=== PATIENT | male | born 1955 | race African-American/Black ===

== ENCOUNTER 2016-09-28 11:59 | Emergency (ER) | payer MEDICAID ==
[~2016-09-28] VITALS: Ht 182.9 cm; Wt 91.0 kg
[2016-09-28 12:21] VITALS: BP 130/79
[2016-09-28] MEDS ORDERED: IBUPROFEN 600MG TABLET PO ONE (13:15)
== END 2016-09-28 14:03 | disposition left against medical advice (07) ==
LOC: ER 11:59
DX: M25.532 Pain in left wrist (principal); F17.200 Nicotine dependence, unspecified, uncomplicated; F19.10 Other psychoactive substance abuse, uncomplicated; W18.30XA Fall on same level, unspecified, initial encounter; Y93.89 Activity, other specified; Y92.89 Other specified places as the place of occurrence of the external cause; Y99.8 Other external cause status
CPT/HCPCS: 73110; 99284

== ENCOUNTER 2016-10-03 12:20 | Emergency (ER) | payer MEDICAID ==
[~2016-10-03] VITALS: Ht 172.7 cm; Wt 63.0 kg
[2016-10-03] MEDS ORDERED: KETOROLAC 60MG/2ML VIAL IM ONE (14:45)
[2016-10-03 15:06] VITALS: BP 115/74
== END 2016-10-03 15:23 | disposition home or self-care (01) ==
LOC: ER 13:47
DX: M25.532 Pain in left wrist (principal); M79.1 Myalgia; F20.9 Schizophrenia, unspecified; F31.9 Bipolar disorder, unspecified; F17.200 Nicotine dependence, unspecified, uncomplicated; W01.0XXA Fall on same level from slipping, tripping and stumbling without subsequent striking against object, initial encounter
CPT/HCPCS: 96372; 99283; J1885

== ENCOUNTER 2016-10-03 23:13 | Emergency (ER) | payer MEDICAID ==
[~2016-10-03] VITALS: Ht 170.2 cm; Wt 63.0 kg
[2016-10-04 02:00] VITALS: BP 125/71
== END 2016-10-04 05:29 | disposition home or self-care (01) ==
LOC: ER 23:22
DX: M79.642 Pain in left hand (principal)
CPT/HCPCS: 99283

== ENCOUNTER 2016-10-10 00:53 | Emergency (ER) | payer MEDICAID ==
[~2016-10-10] VITALS: Ht 182.9 cm; Wt 68.0 kg
[2016-10-10] MEDS ORDERED: LIDOCAINE HCL 1%/EPI 1:200,000 30 ML VIAL MC ONE (04:00)
[2016-10-10] MEDS ORDERED: TETANUS, DIPHTHERIA, PERTUSSIS VAC/PF 0.5ML (>7YR OLD) IM ONE (04:00)
[2016-10-10] MEDS ORDERED: BACITRACIN ZINC OINT UDPKT TOP ONE (04:00)
[2016-10-10 04:15] LABS: BASOPHILS % 2.7 % (0.0-2.0); EOSINOPHILS % 2.2 % (0.0-5.0); HEMATOCRIT. 35.4 % (42.0-52.0); HEMOGLOBIN. 11.8 g/dL (14.0-18.0); LYMPHOCYTES % 47.8 % (20.0-50.0); MEAN CORPUSCULAR HEMOGLOBIN 28.2 pg (28.0-32.0); MEAN CORPUSCULAR VOLUME 84.4 fL (80.0-94.0); MEAN PLATELET VOLUME 8.3 fl (7.4-10.4); MONOCYTES % 7.8 % (2.0-8.0); NEUTROPHILS % 39.5 % (40.0-76.0); PLATELET 75 x1000/uL (130-400); RED BLOOD CELL COUNT 4.19 mill/uL (4.7-6.1); RED CELL DISTRIBUTION WIDTH 16.3 % (11.6-14.6)
[2016-10-10 04:31] LABS: CARBON DIOXIDE 27 mEq/L (21-32); CHLORIDE 111 mEq/L (98-107); ETHANOL BLOOD 296 mg/dL
[2016-10-10 04:47] LABS: CLARITY URINE CLEAR (CLEAR); COLOR URINE YELLOW (YELLOW); GLUCOSE URINE NEGATIVE (NEGATIVE); KETONES URINE NEGATIVE (NEGATIVE); LEUKOCYTE ESTERASE URINE NEGATIVE (NEGATIVE); NITRITE URINE NEGATIVE (NEGATIVE); OCCULT BLOOD URINE NEGATIVE (NEGATIVE); PROTEIN URINE NEGATIVE (NEGATIVE); SPECIFIC GRAVITY URINE 1.012 (1.005-1.030); UROBILINOGEN URINE 0.2 E.U./dL (0.2-1.0)
[2016-10-10 05:01] LABS: *AMPHETAMINES SCREEN URINE NEGATIVE (NEGATIVE); *BARBITURATES SCREEN URINE NEGATIVE (NEGATIVE); *BENZODIAZEPINES SCREEN URINE NEGATIVE (NEGATIVE); *COCAINE SCREEN URINE NEGATIVE (NEGATIVE); CANNABINOID URINE SCREEN NEGATIVE (NEGATIVE); METHADONE URINE SCREEN NEGATIVE (NEGATIVE); OPIATES URINE SCREEN NEGATIVE (NEGATIVE); PHENCYCLIDINE URINE SCREEN PRESUMTIVE POSITIVE (NEGATIVE)
[2016-10-10] MEDS ORDERED: FLUORESCEIN SODIUM 1MG/STRIP OP ONE (07:45)
[2016-10-10] MEDS ORDERED: BALANCED SALT IRRIG SOLN 15ML IO ONE (07:45)
[2016-10-10] MEDS ORDERED: TETRACAINE 0.5% OPHTH DROPS 4ML OP ONE (07:45)
[2016-10-10 10:54] VITALS: BP 104/60
== END 2016-10-10 11:37 | disposition left against medical advice (07) ==
LOC: ER 00:59 → EDBEDREQ 10:31 → CANBEDREQ 11:28 → ER 11:37
DX: S05.41XA Penetrating wound of orbit with or without foreign body, right eye, initial encounter (principal); X58.XXXA Exposure to other specified factors, initial encounter; Y93.89 Activity, other specified; Y92.89 Other specified places as the place of occurrence of the external cause; Y99.8 Other external cause status; S09.90XA Unspecified injury of head, initial encounter
CPT/HCPCS: 36415; 70450; 70486; 72125; 80053; 80305; 81003; 85025; 99285; G0482; X7700; Z7610

== ENCOUNTER 2016-10-15 03:06 | Emergency (ER) | payer MEDICAID ==
[~2016-10-15] VITALS: Ht 180.3 cm; Wt 62.0 kg
[2016-10-15 03:56] VITALS: BP 106/58
== END 2016-10-15 07:30 | disposition left against medical advice (07) ==
LOC: ER 03:06
DX: Z53.21 Procedure and treatment not carried out due to patient leaving prior to being seen by health care provider (principal); I10 Essential (primary) hypertension; F17.210 Nicotine dependence, cigarettes, uncomplicated; F14.10 Cocaine abuse, uncomplicated

== ENCOUNTER 2016-10-24 21:42 | Emergency (ER) | payer MEDICAID ==
[~2016-10-24] VITALS: Ht 177.8 cm; Wt 68.0 kg
[~2016-10-24 21:42] MED LIST: DIATR MEGLU/DIATRIZOATE SOLN 120ML ONE
[2016-10-25] MEDS ORDERED: SODIUM CHLORIDE 0.9% 1,000 ML IV ONE (00:28)
[2016-10-25] MEDS ORDERED: ONDANSETRON HCL 4MG/2ML VIAL IV STA (00:28)
[2016-10-25 00:53] LABS: BASOPHILS % 3.1 % (0.0-2.0); HEMATOCRIT. 38.9 % (42.0-52.0); MEAN CORPUSCULAR HEMOGLOBIN 28.8 pg (28.0-32.0); MEAN CORPUSCULAR VOLUME 86.2 fL (80.0-94.0); MEAN PLATELET VOLUME 8.5 fl (7.4-10.4); MONOCYTES % 11.7 % (2.0-8.0); NEUTROPHILS % 47.2 % (40.0-76.0); PLATELET 130 x1000/uL (130-400); RED BLOOD CELL COUNT 4.52 mill/uL (4.7-6.1); RED CELL DISTRIBUTION WIDTH 16.5 % (11.6-14.6)
[2016-10-25 00:58] LABS: CHLORIDE 105 mEq/L (98-107)
[2016-10-25 01:07] LABS: CARBON DIOXIDE 27 mEq/L (21-32); ETHANOL BLOOD 214 mg/dL
[2016-10-25 04:00] VITALS: BP 118/75
== END 2016-10-25 05:58 | disposition home or self-care (01) ==
LOC: ER 21:52
DX: M79.605 Pain in left leg (principal); K52.9 Noninfective gastroenteritis and colitis, unspecified
CPT/HCPCS: 36415; 74176; 80053; 83690; 85025; 93971; 96374; 99285; G0482; J2405; J7030; Z7610; 96361; Q9963

== ENCOUNTER 2016-11-24 04:43 | Emergency (ER) | payer MEDICAID ==
[~2016-11-24] VITALS: Ht 185.4 cm; Wt 61.0 kg
[2016-11-24] MEDS ORDERED: KETOROLAC 60MG/2ML VIAL IM ONE (06:45)
[2016-11-24] MEDS ORDERED: TRAMADOL 50MG TABLET PO ONE (09:15)
[2016-11-24 10:10] VITALS: BP 134/85
== END 2016-11-24 11:02 | disposition home or self-care (01) ==
LOC: ER 04:43
DX: S29.011A Strain of muscle and tendon of front wall of thorax, initial encounter (principal); G40.909 Epilepsy, unspecified, not intractable, without status epilepticus; Y08.89XA Assault by other specified means, initial encounter; Y93.89 Activity, other specified; Y92.488 Other paved roadways as the place of occurrence of the external cause
CPT/HCPCS: 71010; 96372; 99283; J1885

== ENCOUNTER 2017-01-03 20:57 | Emergency (ER) | payer MEDICAID ==
[~2017-01-03] VITALS: Ht 180.3 cm; Wt 63.0 kg
[2017-01-03] MEDS ORDERED: ONDANSETRON HCL 4MG/2ML VIAL IV STA (23:32)
[2017-01-03] MEDS ORDERED: MORPHINE SULFATE 4 MG/ML CPJ (NOT FOR IM USE) IV STA (23:32)
[2017-01-03] MEDS ORDERED: FLUORESCEIN SODIUM 1MG/STRIP OP ONE (23:45)
[2017-01-03] MEDS ORDERED: TETRACAINE 0.5% OPHTH DROPS 4ML OP ONE (23:45)
[2017-01-04] MEDS ORDERED: MORPHINE SULFATE 10 MG/ML CPJ IV STA (00:09)
[2017-01-04] MEDS ORDERED: MORPHINE SULFATE 10 MG/ML CPJ IV SCH (00:15)
[2017-01-04] MEDS ORDERED: KETOROLAC 15MG/ML VIAL IV ONE (06:30)
[2017-01-04] MEDS ORDERED: ONDANSETRON HCL 4MG/2ML VIAL IV ONE (06:30)
[2017-01-04] MEDS ORDERED: MORPHINE SULFATE 10 MG/ML CPJ IV ONE (06:30)
[2017-01-04] MEDS ORDERED: CIPROFLOXACIN 0.3% OPHTH SOLN 2.5ML BOTHEYE ONE (09:45)
[2017-01-04] MEDS ORDERED: PREDNISOLONE ACETATE 1% OPHTH DROPS 1ML BOTHEYE ONE (09:45)
[2017-01-04 11:12] VITALS: BP 146/73
== END 2017-01-04 11:14 | disposition home or self-care (01) ==
LOC: ER 21:10
DX: S05.92XA Unspecified injury of left eye and orbit, initial encounter (principal); H40.9 Unspecified glaucoma; I10 Essential (primary) hypertension; F17.200 Nicotine dependence, unspecified, uncomplicated; Y09 Assault by unspecified means; Y93.89 Activity, other specified; Y92.89 Other specified places as the place of occurrence of the external cause; Y99.8 Other external cause status
CPT/HCPCS: 70486; 96374; 96375; 96376; 99284; J1885; J2270; J2405; Z7610

== ENCOUNTER 2017-06-06 01:45 | Emergency (ER) | payer MEDICAID ==
[~2017-06-06] VITALS: Ht 182.9 cm; Wt 70.0 kg
[2017-06-06 01:47] VITALS: BP 155/82
== END 2017-06-06 09:00 | disposition left against medical advice (07) ==
LOC: ER 01:45
DX: R07.81 Pleurodynia (principal); Z53.21 Procedure and treatment not carried out due to patient leaving prior to being seen by health care provider

== ENCOUNTER 2017-06-11 17:11 | Emergency (ER) | payer MEDICAID ==
[~2017-06-11] VITALS: Ht 172.7 cm; Wt 76.0 kg
[2017-06-11 17:52] VITALS: BP 146/85
== END 2017-06-11 18:43 | disposition left against medical advice (07) ==
LOC: ER 17:11
DX: R07.81 Pleurodynia (principal); Z53.21 Procedure and treatment not carried out due to patient leaving prior to being seen by health care provider

== ENCOUNTER 2018-01-16 20:58 | Emergency (ER) | payer MEDICAID ==
[~2018-01-16] VITALS: Ht 188 cm; Wt 80.0 kg
[2018-01-17 00:05] LABS: BASOPHILS % 1.2 % (0.0-2.0); EOSINOPHILS % 0.8 % (0.0-5.0); HEMATOCRIT. 37.9 % (42.0-52.0); HEMOGLOBIN. 12.6 g/dL (14.0-18.0); LYMPHOCYTES % 43.4 % (20.0-50.0); MEAN CORPUSCULAR HEMOGLOBIN 29.2 pg (28.0-32.0); MEAN CORPUSCULAR VOLUME 87.9 fL (80.0-94.0); MONOCYTES % 9.4 % (2.0-8.0); NEUTROPHILS % 45.2 % (40.0-76.0); PLATELET 82 x1000/uL (130-400); RED BLOOD CELL COUNT 4.31 mill/uL (4.7-6.1); RED CELL DISTRIBUTION WIDTH 16.5 % (11.6-14.6)
[2018-01-17 00:07] LABS: CHLORIDE 106 mEq/L (98-107)
[2018-01-17 00:09] LABS: INR 1.1
[2018-01-17 00:27] LABS: ETHANOL BLOOD 420 mg/dL
[2018-01-17 03:43] VITALS: BP 111/98
== END 2018-01-17 03:20 | disposition home or self-care (01) ==
LOC: ER 20:58
DX: F10.129 Alcohol abuse with intoxication, unspecified (principal); Y90.8 Blood alcohol level of 240 mg/100 ml or more; S00.83XA Contusion of other part of head, initial encounter; X58.XXXA Exposure to other specified factors, initial encounter; Y93.89 Activity, other specified; Y92.89 Other specified places as the place of occurrence of the external cause; F17.210 Nicotine dependence, cigarettes, uncomplicated
CPT/HCPCS: 36415; 70450; 80053; 85025; 85610; 99284; G0482

== ENCOUNTER 2018-02-03 20:19 | Emergency (ER) | payer MEDICAID ==
[~2018-02-03] VITALS: Ht 182.9 cm; Wt 86.0 kg
[2018-02-03] MEDS ORDERED: KETOROLAC 60MG/2ML VIAL IM ONE (20:45)
[2018-02-03] MEDS ORDERED: HALOPERIDOL 5MG TABLET PO ONE (20:45)
[2018-02-03 22:26] LABS: *AMPHETAMINES SCREEN URINE NEGATIVE (NEGATIVE); *BARBITURATES SCREEN URINE NEGATIVE (NEGATIVE); *BENZODIAZEPINES SCREEN URINE NEGATIVE (NEGATIVE); *COCAINE SCREEN URINE PRESUMTIVE POSITIVE (NEGATIVE); CANNABINOID URINE SCREEN NEGATIVE (NEGATIVE); OPIATES URINE SCREEN NEGATIVE (NEGATIVE); PHENCYCLIDINE URINE SCREEN NEGATIVE (NEGATIVE)
[2018-02-03 22:27] LABS: METHADONE URINE SCREEN NEGATIVE (NEGATIVE)
[2018-02-03 22:44] LABS: BASOPHILS % 3.1 % (0.0-2.0); CHLORIDE 113 mEq/L (98-107); EOSINOPHILS % 3.4 % (0.0-5.0); HEMATOCRIT. 40.9 % (42.0-52.0); HEMOGLOBIN. 13.6 g/dL (14.0-18.0); LYMPHOCYTES % 32.8 % (20.0-50.0); MEAN CORPUSCULAR HEMOGLOBIN 29.3 pg (28.0-32.0); MEAN CORPUSCULAR VOLUME 88.1 fL (80.0-94.0); MEAN PLATELET VOLUME 8.7 fl (7.4-10.4); MONOCYTES % 9.8 % (2.0-8.0); NEUTROPHILS % 50.9 % (40.0-76.0); PLATELET 223 x1000/uL (130-400); RED BLOOD CELL COUNT 4.65 mill/uL (4.7-6.1); RED CELL DISTRIBUTION WIDTH 16.6 % (11.6-14.6)
[2018-02-03 22:56] LABS: CREATINE KINASE 132 IU/L (39-308)
[2018-02-03 23:12] LABS: ETHANOL BLOOD 309 mg/dL
[2018-02-04 10:57] VITALS: BP 137/84
== END 2018-02-04 11:03 | disposition home or self-care (01) ==
LOC: ER 20:19
DX: R45.851 Suicidal ideations (principal); F33.3 Major depressive disorder, recurrent, severe with psychotic symptoms; F10.10 Alcohol abuse, uncomplicated; Y90.8 Blood alcohol level of 240 mg/100 ml or more; F14.10 Cocaine abuse, uncomplicated; G89.29 Other chronic pain
CPT/HCPCS: 36415; 80053; 80305; 80307; 80329; 82550; 85025; 96372; 99284; G0482; J1630; J1885

== ENCOUNTER 2018-05-18 19:27 | Emergency (ER) | payer MEDICAID ==
[~2018-05-18] VITALS: Ht 172.7 cm; Wt 64.0 kg
[2018-05-19 00:16] LABS: BASOPHILS % 0.7 % (0.0-2.0); EOSINOPHILS % 0.4 % (0.0-5.0); HEMATOCRIT. 45.1 % (42.0-52.0); HEMOGLOBIN. 15.2 g/dL (14.0-18.0); LYMPHOCYTES % 21.6 % (20.0-50.0); MEAN CORPUSCULAR HEMOGLOBIN 27.9 pg (28.0-32.0); MEAN CORPUSCULAR VOLUME 82.8 fL (80.0-94.0); MEAN PLATELET VOLUME 8.1 fl (7.4-10.4); MONOCYTES % 8.2 % (2.0-8.0); NEUTROPHILS % 69.1 % (40.0-76.0); PLATELET 143 x1000/uL (130-400); RED BLOOD CELL COUNT 5.45 mill/uL (4.7-6.1); RED CELL DISTRIBUTION WIDTH 14.9 % (11.6-14.6)
[2018-05-19 00:21] LABS: CHLORIDE 105 mEq/L (98-107)
[2018-05-19 00:25] LABS: ETHANOL BLOOD 11 mg/dL
[2018-05-19] MEDS ORDERED: DEXT 5%/0.45% NACL KCL 20MEQ/L 1,000 ML IV ONE (01:30)
[2018-05-19] MEDS ORDERED: TETANUS, DIPHTHERIA, PERTUSSIS VAC/PF 0.5ML (>7YR OLD) IM ONE (01:30)
[2018-05-19] MEDS ORDERED: IBUPROFEN 600MG TABLET PO ONE (01:30)
[2018-05-19] MEDS ORDERED: BACITRACIN 15GM TUBE TOP NR (01:30)
[2018-05-19 10:15] LABS: CLARITY URINE CLEAR (CLEAR); COLOR URINE YELLOW (YELLOW); KETONES URINE NEGATIVE (NEGATIVE); LEUKOCYTE ESTERASE URINE 2+ (NEGATIVE); NITRITE URINE POSITIVE (NEGATIVE); OCCULT BLOOD URINE TRACE (NEGATIVE); PH URINE 5.5 (4.5-8.0); PROTEIN URINE NEGATIVE (NEGATIVE); SPECIFIC GRAVITY URINE 1.009 (1.005-1.030); UROBILINOGEN URINE 0.2 E.U./dL (0.2-1.0)
[2018-05-19 11:40] VITALS: BP 155/100
== END 2018-05-19 12:05 | disposition home or self-care (01) ==
LOC: ER 19:27
DX: S01.111A Laceration without foreign body of right eyelid and periocular area, initial encounter (principal); F10.20 Alcohol dependence, uncomplicated; E11.9 Type 2 diabetes mellitus without complications; I10 Essential (primary) hypertension; N28.9 Disorder of kidney and ureter, unspecified; H40.9 Unspecified glaucoma; F15.10 Other stimulant abuse, uncomplicated; Z86.73 Personal history of transient ischemic attack (TIA), and cerebral infarction without residual deficits; Z98.890 Other specified postprocedural states; X58.XXXA Exposure to other specified factors, initial encounter; Y93.89 Activity, other specified; Y92.89 Other specified places as the place of occurrence of the external cause; Y99.8 Other external cause status; Y90.0 Blood alcohol level of less than 20 mg/100 ml
CPT/HCPCS: 36415; 70450; 80053; 80320; 81003; 82962; 83880; 84484; 85025; 87077; 87086; 87186; 90471; 90715; 93005; 96360; 96361; 99284; Z7610; G0480

== ENCOUNTER 2020-10-11 16:45 | Emergency (ER) | payer MEDICAID ==
[~2020-10-11] VITALS: Ht 182.9 cm; Wt 72.0 kg
[2020-10-11 16:59] VITALS: BP 138/76
[2020-10-11] MEDS ORDERED: MAGNESIUM/ALUMINUM HYDROXIDE/SIMETHICONE 30ML UDC PO STA (17:29)
[2020-10-11] MEDS ORDERED: VISCOUS LIDOCAINE 2% 15 ML UDC PO STA (17:29)
[2020-10-11] MEDS ORDERED: DICYCLOMINE 10 MG/5 ML ORAL SYR PO STA (17:29)
[2020-10-11 18:05] LABS: BASOPHILS % 1.2 % (0.0-2.0); EOSINOPHILS % 0.3 % (0.0-5.0); HEMATOCRIT. 39.3 % (42.0-52.0); HEMOGLOBIN. 13.4 g/dL (14.0-18.0); LYMPHOCYTES % 23.3 % (20.0-50.0); MEAN CORPUSCULAR HEMOGLOBIN 29.2 pg (28.0-32.0); MEAN CORPUSCULAR VOLUME 85.7 fL (80.0-94.0); MEAN PLATELET VOLUME 8.2 fl (7.4-10.4); MONOCYTES % 5.2 % (2.0-8.0); PLATELET 142 x1000/uL (130-400); RED BLOOD CELL COUNT 4.58 mill/uL (4.7-6.1); RED CELL DISTRIBUTION WIDTH 15.3 % (11.6-14.6)
[2020-10-11 18:12] LABS: CHLORIDE 104 mEq/L (98-107)
[2020-10-11 18:53] LABS: ETHANOL BLOOD 362 mg/dL
== END 2020-10-11 21:54 | disposition left against medical advice (07) ==
LOC: ER 17:26
DX: R10.825 Periumbilic rebound abdominal tenderness (principal); T51.0X1A Toxic effect of ethanol, accidental (unintentional), initial encounter; F15.10 Other stimulant abuse, uncomplicated; E11.9 Type 2 diabetes mellitus without complications; I10 Essential (primary) hypertension; N28.9 Disorder of kidney and ureter, unspecified; Z98.890 Other specified postprocedural states; Z86.73 Personal history of transient ischemic attack (TIA), and cerebral infarction without residual deficits; Y92.89 Other specified places as the place of occurrence of the external cause
CPT/HCPCS: 36415; 80053; 80320; 85025; 99283; G0480

== ENCOUNTER 2021-01-02 21:01 | Emergency (ER) | payer MEDICAID ==
[~2021-01-02] VITALS: Ht 180.3 cm; Wt 68.0 kg
[2021-01-03 01:22] LABS: BASOPHILS % 1.4 % (0.0-2.0); EOSINOPHILS % 0.4 % (0.0-5.0); HEMATOCRIT. 44.2 % (42.0-52.0); HEMOGLOBIN. 14.7 g/dL (14.0-18.0); MEAN CORPUSCULAR HEMOGLOBIN 29.4 pg (28.0-32.0); MEAN CORPUSCULAR VOLUME 87.9 fL (80.0-94.0); MEAN PLATELET VOLUME 9.2 fl (7.4-10.4); NEUTROPHILS % 51.2 % (40.0-76.0); PLATELET 123 x1000/uL (130-400); RED BLOOD CELL COUNT 5.02 mill/uL (4.7-6.1); RED CELL DISTRIBUTION WIDTH 14.7 % (11.6-14.6)
[2021-01-03 01:42] LABS: CHLORIDE 106 mEq/L (98-107)
[2021-01-03 02:32] LABS: CLARITY URINE CLEAR (CLEAR); COLOR URINE YELLOW (YELLOW); KETONES URINE NEGATIVE (NEGATIVE); LEUKOCYTE ESTERASE URINE NEGATIVE (NEGATIVE); NITRITE URINE NEGATIVE (NEGATIVE); OCCULT BLOOD URINE NEGATIVE (NEGATIVE); PROTEIN URINE NEGATIVE (NEGATIVE); SPECIFIC GRAVITY URINE 1.004 (1.005-1.030); UROBILINOGEN URINE 0.2 E.U./dL (0.2-1.0)
[2021-01-03] MEDS ORDERED: KETOROLAC 60MG/2ML VIAL IM SCH (03:02)
[2021-01-03 03:10] VITALS: BP 129/79
[2021-01-03] MEDS ORDERED: IBUP-2028 MT (03:36)
== END 2021-01-03 03:48 | disposition home or self-care (01) ==
LOC: ER 21:01
DX: G89.29 Other chronic pain (principal); R07.89 Other chest pain; I12.9 Hypertensive chronic kidney disease with stage 1 through stage 4 chronic kidney disease, or unspecified chronic kidney disease; E11.22 Type 2 diabetes mellitus with diabetic chronic kidney disease; N18.9 Chronic kidney disease, unspecified; F15.10 Other stimulant abuse, uncomplicated; H40.9 Unspecified glaucoma; F10.21 Alcohol dependence, in remission; Z86.73 Personal history of transient ischemic attack (TIA), and cerebral infarction without residual deficits; Z86.19 Personal history of other infectious and parasitic diseases
CPT/HCPCS: 36415; 71045; 80053; 81003; 83690; 85025; 96372; 99284; J1885

== ENCOUNTER 2021-10-11 22:16 | Emergency (ER) | payer MEDICAID ==
[~2021-10-11] VITALS: Ht 180.3 cm; Wt 68.0 kg
[~2021-10-11 22:16] MED LIST changes: -DIATR MEGLU/DIATRIZOATE SOLN 120ML ONE; +IBUP-2028 MT
[2021-10-11] MEDS ORDERED: MORPHINE SULFATE 4 MG/ML CPJ (NOT FOR IM USE) IV STA (22:53)
[2021-10-11] MEDS ORDERED: ONDANSETRON HCL 4MG/2ML INJ IV STA (22:53)
[2021-10-11 23:32] LABS: CHLORIDE 104 mEq/L (98-107)
[2021-10-11 23:37] LABS: BASOPHILS % 2.1 % (0.0-2.0); EOSINOPHILS % 0.4 % (0.0-5.0); HEMOGLOBIN. 12.6 g/dL (14.0-18.0); MEAN CORPUSCULAR VOLUME 89.6 fL (80.0-94.0); MEAN PLATELET VOLUME 9.2 fl (7.4-10.4); NEUTROPHILS % 44.5 % (40.0-76.0); PLATELET 87 x1000/uL (130-400); RED BLOOD CELL COUNT 4.35 mill/uL (4.7-6.1); RED CELL DISTRIBUTION WIDTH 15.7 % (11.6-14.6)
[2021-10-11 23:53] LABS: ETHANOL BLOOD 356 mg/dL
[2021-10-12 00:10] LABS: CLARITY URINE CLEAR (CLEAR); COLOR URINE YELLOW (YELLOW); KETONES URINE NEGATIVE (NEGATIVE); LEUKOCYTE ESTERASE URINE NEGATIVE (NEGATIVE); NITRITE URINE NEGATIVE (NEGATIVE); OCCULT BLOOD URINE NEGATIVE (NEGATIVE); PROTEIN URINE NEGATIVE (NEGATIVE); SPECIFIC GRAVITY URINE 1.004 (1.005-1.030); UROBILINOGEN URINE 0.2 E.U./dL (0.2-1.0)
[2021-10-12 00:20] LABS: *AMPHETAMINES SCREEN URINE NEGATIVE (NEGATIVE); *BARBITURATES SCREEN URINE NEGATIVE (NEGATIVE); *BENZODIAZEPINES SCREEN URINE NEGATIVE (NEGATIVE); *COCAINE SCREEN URINE NEGATIVE (NEGATIVE); CANNABINOID URINE SCREEN PRESUMTIVE POSITIVE (NEGATIVE); METHADONE URINE SCREEN NEGATIVE (NEGATIVE); OPIATES URINE SCREEN NEGATIVE (NEGATIVE); PHENCYCLIDINE URINE SCREEN NEGATIVE (NEGATIVE)
[2021-10-12 03:00] VITALS: BP 122/79
[2021-10-12] MEDS ORDERED: CEPH500C2 MT (04:28)
[2021-10-12] MEDS ORDERED: IBUP-2029 MT (04:28)
== END 2021-10-12 05:07 | disposition home or self-care (01) ==
LOC: ER 22:16
DX: S09.8XXA Other specified injuries of head, initial encounter (principal); W18.39XA Other fall on same level, initial encounter; Y93.89 Activity, other specified; Y92.89 Other specified places as the place of occurrence of the external cause; Y99.8 Other external cause status; M25.552 Pain in left hip; G89.29 Other chronic pain; F10.229 Alcohol dependence with intoxication, unspecified; Y90.0 Blood alcohol level of less than 20 mg/100 ml; E11.9 Type 2 diabetes mellitus without complications; I10 Essential (primary) hypertension; Z86.73 Personal history of transient ischemic attack (TIA), and cerebral infarction without residual deficits; F15.10 Other stimulant abuse, uncomplicated; Z20.822 Contact with and (suspected) exposure to COVID-19
CPT/HCPCS: 36415; 70450; 71045; 73502; 80053; 80305; 80320; 81003; 84484; 85025; 86850; 86900; 86901; 87426; 93005; 96374; 96375; 99285; C9803; J2270; J2405; G0480

== ENCOUNTER 2022-02-17 15:23 | Emergency (ER) | payer MEDICAID ==
[~2022-02-17] VITALS: Ht 182.9 cm; Wt 72.0 kg
[~2022-02-17 15:23] MED LIST changes: +CEPH500C2 MT; -IBUP-2028 MT; +IBUP-2029 MT
[2022-02-17 16:54] LABS: BASOPHILS % 1.3 % (0.0-2.0); EOSINOPHILS % 0.1 % (0.0-5.0); HEMATOCRIT. 39.2 % (42.0-52.0); HEMOGLOBIN. 12.9 g/dL (14.0-18.0); LYMPHOCYTES % 13.3 % (20.0-50.0); MEAN CORPUSCULAR HEMOGLOBIN 29.4 pg (28.0-32.0); MEAN CORPUSCULAR VOLUME 89.1 fL (80.0-94.0); MEAN PLATELET VOLUME 8.4 fl (7.4-10.4); MONOCYTES % 3.9 % (2.0-8.0); NEUTROPHILS % 81.4 % (40.0-76.0); PLATELET 126 x1000/uL (130-400); RED BLOOD CELL COUNT 4.39 mill/uL (4.7-6.1); RED CELL DISTRIBUTION WIDTH 15.1 % (11.6-14.6)
[2022-02-17 17:01] LABS: CHLORIDE 105 mEq/L (98-107)
[2022-02-17 17:16] LABS: ETHANOL BLOOD 391 mg/dL
[2022-02-17 19:54] VITALS: BP 91/53
== END 2022-02-17 20:33 | disposition home or self-care (01) ==
LOC: ER 15:44
DX: R53.1 Weakness (principal); R05.9 Cough, unspecified; E11.9 Type 2 diabetes mellitus without complications; I10 Essential (primary) hypertension; H40.9 Unspecified glaucoma; Z86.73 Personal history of transient ischemic attack (TIA), and cerebral infarction without residual deficits; F15.10 Other stimulant abuse, uncomplicated
CPT/HCPCS: 36415; 71045; 80053; 80320; 83880; 84484; 85025; 93005; 99285; G0480

== ENCOUNTER 2022-04-07 16:22 | Inpatient (IN) | payer MEDICAID ==
[~2022-04-07] VITALS: Ht 172.7 cm; Wt 39.5 kg
[2022-04-07] MEDS ORDERED: FOLIC ACID 1 MG, THIAMINE HCL 100 MG, MVI, ADULT NO.1 10 ML in DEXTROSE 5% WATER 1,000 ML IV ONE ×4 (17:30)
[2022-04-07] MEDS ORDERED: MAGNESIUM 2 G PREMIX 50 ML IV NR (17:30)
[2022-04-07 18:47] LABS: BASOPHILS % 0.4 % (0.0-2.0); EOSINOPHILS % 0.3 % (0.0-5.0); HEMATOCRIT. 36.9 % (42.0-52.0); LYMPHOCYTES % 11.6 % (20.0-50.0); MEAN CORPUSCULAR HEMOGLOBIN 28.7 pg (28.0-32.0); MEAN CORPUSCULAR VOLUME 88.6 fL (80.0-94.0); MEAN PLATELET VOLUME 9.3 fl (7.4-10.4); MONOCYTES % 4.9 % (2.0-8.0); NEUTROPHILS % 82.8 % (40.0-76.0); PLATELET 83 x1000/uL (130-400); RED BLOOD CELL COUNT 4.16 mill/uL (4.7-6.1)
[2022-04-07 18:56] LABS: CHLORIDE 107 mEq/L (98-107)
[2022-04-07 19:02] LABS: ETHANOL BLOOD 156 mg/dL
[2022-04-07] MEDS ORDERED: IPRATROPIUM/ALBUTEROL 0.5-3(2.5)MG/3ML NEB HHN PRN (19:45)
[2022-04-07] MEDS ORDERED: POTASSIUM CHLORIDE INJ 60 MEQ in DEXT 5% WATER 250 ML IV ONE (19:45)
[2022-04-07] MEDS ORDERED: CLONIDINE 0.1MG TABLET PO PRN (19:45)
[2022-04-07] MEDS ORDERED: DIPHENHYDRAMINE 50MG/ML VIAL IV PRN (19:45)
[2022-04-07] MEDS ORDERED: ONDANSETRON HCL 4MG/2ML INJ IV PRN (19:45)
[2022-04-07] MEDS ORDERED: DEXTROSE 5% WATER 1,000 ML IV SCH (19:45)
[2022-04-08 05:39] VITALS: BP 102/64
[2022-04-08 08:00] VITALS: BP 108/75
[2022-04-08] MEDS ORDERED: PNEUMOCOCCAL 23-VAL P-SAC VAC 0.5 ML IM ONE (11:00)
[2022-04-08] MEDS ORDERED: INFLUENZA VACCINE 05/PF 0.5 ML SYRINGE IM ONE (11:00)
[2022-04-08 11:02] LABS: BASOPHILS % 0.7 % (0.0-2.0); EOSINOPHILS % 0.5 % (0.0-5.0); HEMATOCRIT. 36.4 % (42.0-52.0); LYMPHOCYTES % 9.1 % (20.0-50.0); MEAN CORPUSCULAR HEMOGLOBIN 29.1 pg (28.0-32.0); MEAN PLATELET VOLUME 9.7 fl (7.4-10.4); MONOCYTES % 7.4 % (2.0-8.0); NEUTROPHILS % 82.3 % (40.0-76.0); PLATELET 98 x1000/uL (130-400); RED BLOOD CELL COUNT 4.14 mill/uL (4.7-6.1)
[2022-04-08 11:58] LABS: CHLORIDE 110 mEq/L (98-107)
[2022-04-08 12:00] VITALS: BP 110/66
[2022-04-08 12:38] LABS: HEPATITIS B SURFACE ANTIGEN NEGATIVE
[2022-04-08] MEDS: FOLIC ACID 1MG TABLET PO SCH ×2 (14:30→15:29)
[2022-04-08] MEDS: MULTIVITAMINS,THER W-MINERALS TABLET PO SCH ×2 (14:30→15:29)
[2022-04-08] MEDS: CHLORDIAZEPOXIDE 25MG CAPSULE PO SCH ×3 (14:30→22:32)
[2022-04-08] MEDS: SODIUM CHLORIDE 0.45% 1,000 ML IV SCH ×2 (15:38→22:32)
[2022-04-08 16:00] VITALS: BP 113/83
[2022-04-08] MEDS ORDERED: THIAMINE HCL 100 MG in SODIUM CHLORIDE 0.9% 50 ML IV SCH (16:00)
[2022-04-08 20:00] VITALS: BP 119/74
[2022-04-08] MEDS: KCL 20MEQ/100ML PREMIX 100 ML IV SCH ×3 (20:25→20:26)
[2022-04-08 22:12] LABS: T4 FREE 0.95 ng/dL (0.76-1.46)
[2022-04-08 22:50] LABS: FOLIC ACID (FOLATE) SERUM >20 ng/mL ng/mL (>5.38); VITAMIN B12 SERUM 1799 pg/mL (211-911)
[2022-04-09] VITALS: BP 96/57
[2022-04-09 04:00] VITALS: BP 100/61
[2022-04-09] MEDS: CHLORDIAZEPOXIDE 25MG CAPSULE PO SCH ×3 (05:16→22:07)
[2022-04-09 06:19] LABS: BASOPHILS % 0.5 % (0.0-2.0); EOSINOPHILS % 0.8 % (0.0-5.0); HEMATOCRIT. 29.5 % (42.0-52.0); HEMOGLOBIN. 9.8 g/dL (14.0-18.0); MEAN CORPUSCULAR HEMOGLOBIN 29.4 pg (28.0-32.0); MEAN CORPUSCULAR VOLUME 88.4 fL (80.0-94.0); MEAN PLATELET VOLUME 10.8 fl (7.4-10.4); MONOCYTES % 7.8 % (2.0-8.0); NEUTROPHILS % 73.9 % (40.0-76.0); PLATELET 90 x1000/uL (130-400); RED BLOOD CELL COUNT 3.34 mill/uL (4.7-6.1)
[2022-04-09 07:43] LABS: CHLORIDE 109 mEq/L (98-107)
[2022-04-09] MEDS: MULTIVITAMINS,THER W-MINERALS TABLET PO SCH (09:20)
[2022-04-09] MEDS: THIAMINE HCL 100MG TABLET PO SCH (09:21)
[2022-04-09] MEDS: FOLIC ACID 1MG TABLET PO SCH (09:21)
[2022-04-09 12:00] VITALS: BP 99/60
[2022-04-09] MEDS ORDERED: POTASSIUM CHLORIDE 20MEQ TABLET SR PO NR (12:30)
[2022-04-09 16:00] VITALS: BP 102/61
[2022-04-09] MEDS ORDERED: IPRATROPIUM BROMIDE (0.02%) 0.5MG/2.5ML NEB HHN PRN (17:00)
[2022-04-09] MEDS ORDERED: ALBUTEROL (0.083%) 2.5MG/3ML NEB HHN PRN (17:00)
[2022-04-09 20:00] VITALS: BP 130/72
[2022-04-09] MEDS: SODIUM CHLORIDE 0.45% 1,000 ML IV SCH (21:18)
[2022-04-10] VITALS: BP 126/84
[2022-04-10 04:00] VITALS: BP 112/65
[2022-04-10] MEDS: CHLORDIAZEPOXIDE 25MG CAPSULE PO SCH ×3 (05:14→22:12)
[2022-04-10 06:08] LABS: HIV SCREEN 4G Non Reactive (Non Reactive)
[2022-04-10] MEDS: MULTIVITAMINS,THER W-MINERALS TABLET PO SCH (10:17)
[2022-04-10] MEDS: FOLIC ACID 1MG TABLET PO SCH (10:17)
[2022-04-10] MEDS: THIAMINE HCL 100MG TABLET PO SCH (10:17)
[2022-04-10] MEDS: SODIUM CHLORIDE 0.45% 1,000 ML IV SCH (15:45)
[2022-04-10 20:00] VITALS: BP 91/43
[2022-04-11] VITALS (7 sets, daily range): BP systolic 71–98; BP diastolic 44–66
[2022-04-11] MEDS: SODIUM CHLORIDE 0.45% 1,000 ML IV SCH ×3 (04:22→19:30)
[2022-04-11] MEDS: CHLORDIAZEPOXIDE 25MG CAPSULE PO SCH ×4 (06:04→22:03)
[2022-04-11] MEDS: MULTIVITAMINS,THER W-MINERALS TABLET PO SCH (09:33)
[2022-04-11] MEDS: THIAMINE HCL 100MG TABLET PO SCH (09:33)
[2022-04-11] MEDS: FOLIC ACID 1MG TABLET PO SCH (09:33)
[2022-04-12] VITALS (7 sets, daily range): BP systolic 74–105; BP diastolic 43–59
[2022-04-12] MEDS: CHLORDIAZEPOXIDE 25MG CAPSULE PO SCH ×3 (06:17→22:27)
[2022-04-12] MEDS: FOLIC ACID 1MG TABLET PO SCH (09:00)
[2022-04-12] MEDS: MULTIVITAMINS,THER W-MINERALS TABLET PO SCH (09:00)
[2022-04-12] MEDS: THIAMINE HCL 100MG TABLET PO SCH (09:00)
[2022-04-12] MEDS: SODIUM CHLORIDE 0.45% 1,000 ML IV SCH (10:54)
[2022-04-12] MEDS: ACETAMINOPHEN 325MG TABLET PO PRN (14:40)
[2022-04-13] VITALS: BP 101/56
[2022-04-13] MEDS: SODIUM CHLORIDE 0.45% 1,000 ML IV SCH (02:18)
[2022-04-13 04:00] VITALS: BP 127/80
[2022-04-13] MEDS: CHLORDIAZEPOXIDE 25MG CAPSULE PO SCH ×3 (06:00→23:19)
[2022-04-13 08:00] VITALS: BP 97/57
[2022-04-13] MEDS: FOLIC ACID 1MG TABLET PO SCH (11:01)
[2022-04-13] MEDS: MULTIVITAMINS,THER W-MINERALS TABLET PO SCH (11:01)
[2022-04-13] MEDS: THIAMINE HCL 100MG TABLET PO SCH (11:01)
[2022-04-13 12:00] VITALS: BP 97/57
[2022-04-13 16:00] VITALS: BP 91/54
[2022-04-13 20:00] VITALS: BP 91/48
[2022-04-14] VITALS: BP 110/67
[2022-04-14 04:00] VITALS: BP 118/63
[2022-04-14 07:06] LABS: BASOPHILS % 0.9 % (0.0-2.0); EOSINOPHILS % 2.2 % (0.0-5.0); HEMATOCRIT. 30.6 % (42.0-52.0); LYMPHOCYTES % 11.1 % (20.0-50.0); MEAN CORPUSCULAR HEMOGLOBIN 29.3 pg (28.0-32.0); MEAN CORPUSCULAR VOLUME 89.7 fL (80.0-94.0); MEAN PLATELET VOLUME 9.6 fl (7.4-10.4); MONOCYTES % 12.6 % (2.0-8.0); NEUTROPHILS % 73.2 % (40.0-76.0); PLATELET 201 x1000/uL (130-400); RED BLOOD CELL COUNT 3.41 mill/uL (4.7-6.1); RED CELL DISTRIBUTION WIDTH 15.9 % (11.6-14.6)
[2022-04-14 08:00] VITALS: BP 111/68
[2022-04-14 08:03] LABS: CHLORIDE 117 mEq/L (98-107)
[2022-04-14] MEDS ORDERED: SODIUM CHLORIDE 45ML SPRAY NS PRN (09:45)
[2022-04-14] MEDS: FOLIC ACID 1MG TABLET PO SCH (10:27)
[2022-04-14] MEDS: THIAMINE HCL 100MG TABLET PO SCH (10:27)
[2022-04-14] MEDS: CHLORDIAZEPOXIDE 25MG CAPSULE PO SCH ×2 (10:28→23:48)
[2022-04-14] MEDS: QUETIAPINE FUMARATE 25MG TABLET PO SCH ×2 (10:29→23:48)
[2022-04-14] MEDS: MULTIVITAMINS,THER W-MINERALS TABLET PO SCH (10:38)
[2022-04-14 12:00] VITALS: BP 113/65
[2022-04-14 16:00] VITALS: BP 97/70
[2022-04-14 19:50] LABS: BG BASE EXCESS 0.8 mmol/L (-2.0-2.0); BG CARBOXYHEMOGLOBIN 0.3 % (0.5-1.5); BG DEOXYHEMOGLOBIN 10.7 % (0.0-5.0); BG FRACTION INSPIRED OXYGEN 36; BG HCO3 ACT 25.1 mmol/L (22.0-26.0); BG METHEMOGLOBIN 0.2 % (0.0-1.5); BG OXYGEN SATURATION 89.2 % (92.0-98.5); BG OXYHEMOGLOBIN 88.8 % (94.0-97.0); BG PCO2 39.2 mmHg (35.0-45.0); BG PH 7.425 (7.350-7.450); BG PO2 60.9 mmHg (75.0-100.0); BG SAMPLE SITE RIGHT BRACHIAL; BG TOTAL HEMOGLOBIN 10.5 g/dL (12.0-18.0); BG VENT MODE NASAL CANNULA
[2022-04-14 20:00] VITALS: BP 99/64
[2022-04-14] MEDS ORDERED: SODIUM CHLORIDE 0.9% 1,000 ML IV ONE ×2 (20:00)
[2022-04-15] VITALS: BP 100/65
[2022-04-15 00:11] LABS: BASOPHILS % 0.8 % (0.0-2.0); EOSINOPHILS % 3.2 % (0.0-5.0); HEMATOCRIT. 31.1 % (42.0-52.0); HEMOGLOBIN. 10.2 g/dL (14.0-18.0); LYMPHOCYTES % 13.5 % (20.0-50.0); MEAN CORPUSCULAR VOLUME 88.4 fL (80.0-94.0); MEAN PLATELET VOLUME 9.3 fl (7.4-10.4); MONOCYTES % 4.2 % (2.0-8.0); NEUTROPHILS % 78.3 % (40.0-76.0); PLATELET 204 x1000/uL (130-400); RED BLOOD CELL COUNT 3.52 mill/uL (4.7-6.1)
[2022-04-15 00:21] LABS: CHLORIDE 116 mEq/L (98-107)
[2022-04-15 04:00] VITALS: BP 92/58
[2022-04-15] MEDS ORDERED: CEFTRIAXONE 1GM PREMIX 50 ML IV SCH (06:45)
[2022-04-15 08:00] VITALS: BP 101/42
[2022-04-15] MEDS: MULTIVITAMINS,THER W-MINERALS TABLET PO SCH (08:49)
[2022-04-15] MEDS: POTASSIUM CHLORIDE 20MEQ TABLET SR PO SCH (08:49)
[2022-04-15] MEDS: QUETIAPINE FUMARATE 25MG TABLET PO SCH ×2 (08:49→21:00)
[2022-04-15] MEDS: FOLIC ACID 1MG TABLET PO SCH (08:49)
[2022-04-15] MEDS: THIAMINE HCL 100MG TABLET PO SCH (08:49)
[2022-04-15] MEDS ORDERED: CHLORDIAZEPOXIDE 25MG CAPSULE PO SCH (09:00)
[2022-04-15] MEDS ORDERED: THIAMINE HCL 100 MG in SODIUM CHLORIDE 0.9% 49 ML IV NR (10:00)
[2022-04-15] MEDS: CEFTRIAXONE 1,000 MG in DEXTROSE 5% WATER 50 ML IV SCH (10:40)
[2022-04-15] MEDS: METRONIDAZOLE 500 MG PREMIX 100 ML IV SCH ×2 (10:59→17:27)
[2022-04-15 12:00] VITALS: BP 110/45
[2022-04-15 15:29] LABS: HEMOGLOBIN. 8.9 g/dL (14.0-18.0); MEAN CORPUSCULAR HEMOGLOBIN 29.4 pg (28.0-32.0); MEAN CORPUSCULAR VOLUME 88.8 fL (80.0-94.0); MEAN PLATELET VOLUME 9.6 fl (7.4-10.4); PLATELET 169 x1000/uL (130-400); RED BLOOD CELL COUNT 3.04 mill/uL (4.7-6.1); RED CELL DISTRIBUTION WIDTH 16.3 % (11.6-14.6)
[2022-04-15 15:47] LABS: CHLORIDE 117 mEq/L (98-107)
[2022-04-15 15:52] LABS: PHOSPHORUS 4.2 mg/dL (2.5-4.9)
[2022-04-15 16:04] VITALS: BP 120/46
[2022-04-15 20:00] VITALS: BP 71/44
[2022-04-15 20:01] LABS: PLATELET ESTIMATE NORMAL
[2022-04-15] MEDS ORDERED: ALBUMIN HUMAN 25GM/100ML (25%) IV NR (23:00)
[2022-04-16] VITALS (37 sets, daily range): BP systolic 62–128; BP diastolic 48–91
[2022-04-16] MEDS: METRONIDAZOLE 500 MG PREMIX 100 ML IV SCH (01:24)
[2022-04-16 07:57] LABS: BASOPHILS % 0.4 % (0.0-2.0); EOSINOPHILS % 2.7 % (0.0-5.0); HEMOGLOBIN. 8.1 g/dL (14.0-18.0); LYMPHOCYTES % 8.7 % (20.0-50.0); MEAN CORPUSCULAR HEMOGLOBIN 29.7 pg (28.0-32.0); MEAN CORPUSCULAR VOLUME 88.4 fL (80.0-94.0); MEAN PLATELET VOLUME 9.9 fl (7.4-10.4); MONOCYTES % 5.4 % (2.0-8.0); NEUTROPHILS % 82.8 % (40.0-76.0); PLATELET 143 x1000/uL (130-400); RED BLOOD CELL COUNT 2.72 mill/uL (4.7-6.1); RED CELL DISTRIBUTION WIDTH 16.2 % (11.6-14.6)
[2022-04-16 08:34] LABS: CHLORIDE 120 mEq/L (98-107)
[2022-04-16] MEDS: CEFTRIAXONE 1,000 MG in DEXTROSE 5% WATER 50 ML IV SCH (09:00)
[2022-04-16] MEDS ORDERED: SODIUM CHLORIDE 0.9% 1,000 ML IV ONE (09:00)
[2022-04-16] MEDS ORDERED: VECURONIUM BROMIDE 10 MG/VIAL IV ONE (09:27)
[2022-04-16] MEDS ORDERED: SODIUM CHLORIDE 0.9% 10ML VIAL ONE (09:27)
[2022-04-16] MEDS ORDERED: ETOMIDATE 2MG/ML 10ML VIAL IV ONE (09:27)
[2022-04-16] MEDS ORDERED: NOREPINEPHRINE 8 MG in DEXT 5% WATER 242 ML IV PRN (09:30)
[2022-04-16] MEDS ORDERED: ALBUMIN HUMAN 12.5GM/50ML (25%) IV NR (10:00)
[2022-04-16] MEDS: MULTIVITAMINS,THER W-MINERALS TABLET PO SCH (10:09)
[2022-04-16] MEDS: POTASSIUM CHLORIDE 20MEQ TABLET SR PO SCH (10:09)
[2022-04-16] MEDS: THIAMINE HCL 100MG TABLET PO SCH (10:09)
[2022-04-16] MEDS: FOLIC ACID 1MG TABLET PO SCH (10:09)
[2022-04-16] MEDS: DEXT 5%/0.45% NACL 1000ML 1,000 ML IV SCH (10:10)
[2022-04-16] MEDS: MIDODRINE HCL 5MG TABLET PO SCH (13:30)
[2022-04-16] MEDS ORDERED: PHENYLEPHRINE 100 MG in DEXT 5% WATER 240 ML IV PRN (14:00)
[2022-04-16 14:17] LABS: BG BASE EXCESS -2.2 mmol/L (-2.0-2.0); BG CARBOXYHEMOGLOBIN 0.3 % (0.5-1.5); BG DEOXYHEMOGLOBIN 18.6 % (0.0-5.0); BG FRACTION INSPIRED OXYGEN 100; BG HCO3 ACT 22.2 mmol/L (22.0-26.0); BG METHEMOGLOBIN 0.3 % (0.0-1.5); BG OXYGEN SATURATION 81.3 % (92.0-98.5); BG OXYHEMOGLOBIN 80.8 % (94.0-97.0); BG PCO2 36.8 mmHg (35.0-45.0); BG PH 7.399 (7.350-7.450); BG SAMPLE SITE RIGHT RADIAL; BG VENT MODE MASK - NRB
[2022-04-16] MEDS ORDERED: SODIUM CHLORIDE 3% FOR INH 4ML UD NEB INH SCH (16:00)
[2022-04-16] MEDS ORDERED: IPRATROPIUM/ALBUTEROL 0.5-3(2.5)MG/3ML NEB HHN SCH (16:00)
[2022-04-16] MEDS ORDERED: MIDAZOLAM HCL 100 MG in SODIUM CHLORIDE 0.9% 80 ML IV PRN (16:00)
[2022-04-16] MEDS ORDERED: SODIUM CHLORIDE 0.9% 250 ML IV ONE (17:00)
[2022-04-16 17:03] LABS: INR 1.1; PROTHROMBIN TIME 11.9 sec (9.6-11.0)
[2022-04-16 17:56] LABS: CHLORIDE 121 mEq/L (98-107)
[2022-04-16 18:04] LABS: PHOSPHORUS 4.6 mg/dL (2.5-4.9)
[2022-04-16] MEDS: CEFEPIME 2,000 MG in DEXT 5% WATER 100 ML IV SCH (18:43)
[2022-04-16] MEDS: ALBUTEROL (0.083%) 2.5MG/3ML NEB HHN SCH (20:51)
[2022-04-16] MEDS: FENTANYL CITRATE/PF 2,500 MCG in SODIUM CHLORIDE 0.9% 200 ML IV PRN (20:53)
[2022-04-16 22:16] LABS: BG BASE EXCESS -3.6 mmol/L (-2.0-2.0); BG CARBOXYHEMOGLOBIN 0.3 % (0.5-1.5); BG DEOXYHEMOGLOBIN 7.5 % (0.0-5.0); BG FRACTION INSPIRED OXYGEN 90; BG HCO3 ACT 21.3 mmol/L (22.0-26.0); BG METHEMOGLOBIN 0.1 % (0.0-1.5); BG OXYGEN SATURATION 92.5 % (92.0-98.5); BG OXYHEMOGLOBIN 92.1 % (94.0-97.0); BG PCO2 37.9 mmHg (35.0-45.0); BG PH 7.368 (7.350-7.450); BG PO2 71.8 mmHg (75.0-100.0); BG SAMPLE SITE RIGHT RADIAL; BG TOTAL HEMOGLOBIN 9.6 g/dL (12.0-18.0); BG VENT MODE VENT - AC
[2022-04-16] MEDS: DOXYCYCLINE 100 MG in DEXT 5% WATER 100 ML IV SCH (23:51)
[2022-04-17] VITALS (93 sets, daily range): BP systolic 56–162; BP diastolic 29–117
[2022-04-17] MEDS: ALBUTEROL (0.083%) 2.5MG/3ML NEB HHN SCH ×6 (00:15→20:49)
[2022-04-17] MEDS: ACETYLCYSTEINE 200MG/ML 20% VIAL 4ML INH SCH ×2 (00:16→08:37)
[2022-04-17] MEDS: DEXT 5%/0.45% NACL 1000ML 1,000 ML IV SCH ×2 (01:54→16:06)
[2022-04-17 05:37] LABS: BASOPHILS % 0.2 % (0.0-2.0); EOSINOPHILS % 0.9 % (0.0-5.0); HEMOGLOBIN. 8.4 g/dL (14.0-18.0); LYMPHOCYTES % 4.8 % (20.0-50.0); MEAN CORPUSCULAR HEMOGLOBIN 28.7 pg (28.0-32.0); MEAN PLATELET VOLUME 10.2 fl (7.4-10.4); MONOCYTES % 4.3 % (2.0-8.0); NEUTROPHILS % 89.8 % (40.0-76.0); PLATELET 154 x1000/uL (130-400); RED BLOOD CELL COUNT 2.92 mill/uL (4.7-6.1); RED CELL DISTRIBUTION WIDTH 16.8 % (11.6-14.6)
[2022-04-17] MEDS: CEFEPIME 2,000 MG in DEXT 5% WATER 100 ML IV SCH ×2 (06:11→17:26)
[2022-04-17 06:18] LABS: CHLORIDE 119 mEq/L (98-107)
[2022-04-17 08:58] LABS: BG BASE EXCESS -5.5 mmol/L (-2.0-2.0); BG CARBOXYHEMOGLOBIN 0.3 % (0.5-1.5); BG DEOXYHEMOGLOBIN 0.6 % (0.0-5.0); BG FRACTION INSPIRED OXYGEN 90; BG HCO3 ACT 19.6 mmol/L (22.0-26.0); BG METHEMOGLOBIN 0.6 % (0.0-1.5); BG OXYGEN SATURATION 99.4 % (92.0-98.5); BG OXYHEMOGLOBIN 98.5 % (94.0-97.0); BG PCO2 36.5 mmHg (35.0-45.0); BG PH 7.348 (7.350-7.450); BG PO2 369.3 mmHg (75.0-100.0); BG SAMPLE SITE LEFT BRACHIAL; BG TOTAL HEMOGLOBIN 8.9 g/dL (12.0-18.0); BG VENT MODE VENT - AC
[2022-04-17] MEDS: FOLIC ACID 1MG TABLET PO SCH (09:00)
[2022-04-17] MEDS: MULTIVITAMINS,THER W-MINERALS TABLET PO SCH (09:00)
[2022-04-17] MEDS: THIAMINE HCL 100MG TABLET PO SCH (09:00)
[2022-04-17] MEDS: DOXYCYCLINE 100 MG in DEXT 5% WATER 100 ML IV SCH ×2 (09:14→20:07)
[2022-04-17] MEDS: METRONIDAZOLE 500 MG PREMIX 100 ML IV SCH ×2 (09:14→17:27)
[2022-04-17] MEDS: FENTANYL CITRATE/PF 2,500 MCG in SODIUM CHLORIDE 0.9% 200 ML IV PRN ×2 (09:57→11:17)
[2022-04-17] MEDS: BLOOD SUGAR DIAGNOSTIC STRIP TEST SCH ×3 (11:33→20:07)
[2022-04-17] MEDS: INSULIN LISPRO 100 UNITS/ML SUBCUT SCH ×3 (11:34→20:16)
[2022-04-17] MEDS: MIDODRINE HCL 5MG TABLET PO SCH ×2 (14:56→17:27)
[2022-04-17] MEDS: POTASSIUM CHLORIDE 20MEQ TABLET SR PO SCH (14:56)
[2022-04-17] MEDS: NOREPINEPHRINE 32 MG in DEXT 5% WATER 218 ML IV PRN (17:26)
[2022-04-17] MEDS ORDERED: VANCOMYCIN 1G PREMIX 200 ML IV NR (18:00)
[2022-04-18] VITALS (96 sets, daily range): BP systolic 67–148; BP diastolic 40–92
[2022-04-18] MEDS: ALBUTEROL (0.083%) 2.5MG/3ML NEB HHN SCH ×6 (00:57→20:48)
[2022-04-18] MEDS: ACETYLCYSTEINE 200MG/ML 20% VIAL 10ML INH SCH ×4 (00:57→20:49)
[2022-04-18] MEDS: METRONIDAZOLE 500 MG PREMIX 100 ML IV SCH ×3 (01:19→17:13)
[2022-04-18] MEDS: CEFEPIME 2,000 MG in DEXT 5% WATER 100 ML IV SCH ×2 (05:18→17:13)
[2022-04-18] MEDS: DEXT 5%/0.45% NACL 1000ML 1,000 ML IV SCH ×2 (05:18→18:00)
[2022-04-18 05:36] LABS: HEMATOCRIT. 28.7 % (42.0-52.0); HEMOGLOBIN. 9.2 g/dL (14.0-18.0); MEAN CORPUSCULAR HEMOGLOBIN 28.5 pg (28.0-32.0); MEAN PLATELET VOLUME 9.9 fl (7.4-10.4); PLATELET 137 x1000/uL (130-400); RED BLOOD CELL COUNT 3.23 mill/uL (4.7-6.1); RED CELL DISTRIBUTION WIDTH 16.5 % (11.6-14.6)
[2022-04-18] MEDS: INSULIN LISPRO 100 UNITS/ML SUBCUT SCH ×4 (05:43→23:10)
[2022-04-18] MEDS: BLOOD SUGAR DIAGNOSTIC STRIP TEST SCH ×4 (05:43→23:10)
[2022-04-18 05:49] LABS: CHLORIDE 115 mEq/L (98-107)
[2022-04-18] MEDS ORDERED: VANCOMYCIN 750MG PREMIX 150 ML IV SCH ×2 (06:00→21:00)
[2022-04-18 06:50] LABS: PLATELET ESTIMATE NORMAL
[2022-04-18] MEDS: DOXYCYCLINE 100 MG in DEXT 5% WATER 100 ML IV SCH ×2 (08:23→21:03)
[2022-04-18] MEDS: FOLIC ACID 1MG TABLET PO SCH (08:23)
[2022-04-18] MEDS: THIAMINE HCL 100MG TABLET PO SCH (08:23)
[2022-04-18] MEDS: MIDODRINE HCL 5MG TABLET PO SCH ×3 (08:23→17:13)
[2022-04-18] MEDS: POTASSIUM CHLORIDE 20MEQ TABLET SR PO SCH (08:23)
[2022-04-18] MEDS: MULTIVITAMINS,THER W-MINERALS TABLET PO SCH (08:23)
[2022-04-18 09:42] LABS: BG BASE EXCESS -7.6 mmol/L (-2.0-2.0); BG CARBOXYHEMOGLOBIN 0.3 % (0.5-1.5); BG DEOXYHEMOGLOBIN 5.8 % (0.0-5.0); BG FRACTION INSPIRED OXYGEN 40; BG HCO3 ACT 18.4 mmol/L (22.0-26.0); BG METHEMOGLOBIN 0.4 % (0.0-1.5); BG OXYGEN SATURATION 94.2 % (92.0-98.5); BG OXYHEMOGLOBIN 93.5 % (94.0-97.0); BG PCO2 39.3 mmHg (35.0-45.0); BG PH 7.289 (7.350-7.450); BG PO2 79.4 mmHg (75.0-100.0); BG SAMPLE SITE LEFT RADIAL; BG TOTAL HEMOGLOBIN 9.6 g/dL (12.0-18.0); BG VENT MODE VENT - AC
[2022-04-19] VITALS (101 sets, daily range): BP systolic 57–144; BP diastolic 26–103
[2022-04-19] MEDS: ALBUTEROL (0.083%) 2.5MG/3ML NEB HHN SCH ×7 (00:47→23:55)
[2022-04-19] MEDS: METRONIDAZOLE 500 MG PREMIX 100 ML IV SCH ×3 (01:16→17:39)
[2022-04-19 05:21] LABS: HEMATOCRIT. 28.3 % (42.0-52.0); HEMOGLOBIN. 9.1 g/dL (14.0-18.0); MEAN CORPUSCULAR HEMOGLOBIN 28.6 pg (28.0-32.0); MEAN CORPUSCULAR VOLUME 88.7 fL (80.0-94.0); MEAN PLATELET VOLUME 9.8 fl (7.4-10.4); PLATELET 140 x1000/uL (130-400); RED BLOOD CELL COUNT 3.19 mill/uL (4.7-6.1); RED CELL DISTRIBUTION WIDTH 16.8 % (11.6-14.6)
[2022-04-19] MEDS: INSULIN LISPRO 100 UNITS/ML SUBCUT SCH ×3 (05:36→18:00)
[2022-04-19] MEDS: BLOOD SUGAR DIAGNOSTIC STRIP TEST SCH ×4 (05:36→23:22)
[2022-04-19 05:41] LABS: CHLORIDE 116 mEq/L (98-107)
[2022-04-19] MEDS: CEFEPIME 2,000 MG in DEXT 5% WATER 100 ML IV SCH ×2 (05:47→17:39)
[2022-04-19] MEDS: DEXT 5%/0.45% NACL 1000ML 1,000 ML IV SCH (05:49)
[2022-04-19] MEDS ORDERED: LIDOCAINE HCL 1% 30ML VIAL (10MG/ML) ONE (08:27)
[2022-04-19 08:58] LABS: BG BASE EXCESS -6.5 mmol/L (-2.0-2.0); BG CARBOXYHEMOGLOBIN 0.3 % (0.5-1.5); BG DEOXYHEMOGLOBIN 8.6 % (0.0-5.0); BG FRACTION INSPIRED OXYGEN 40; BG HCO3 ACT 19.8 mmol/L (22.0-26.0); BG METHEMOGLOBIN 0.4 % (0.0-1.5); BG OXYGEN SATURATION 91.3 % (92.0-98.5); BG OXYHEMOGLOBIN 90.7 % (94.0-97.0); BG PCO2 42.9 mmHg (35.0-45.0); BG PH 7.282 (7.350-7.450); BG PO2 66.7 mmHg (75.0-100.0); BG SAMPLE SITE LEFT RADIAL; BG TOTAL HEMOGLOBIN 10.1 g/dL (12.0-18.0); BG VENT MODE VENT - AC
[2022-04-19 09:12] LABS: PLATELET ESTIMATE NORMAL
[2022-04-19] MEDS: ACETYLCYSTEINE 200MG/ML 20% VIAL 10ML INH SCH ×3 (09:15→23:55)
[2022-04-19] MEDS: MULTIVITAMINS,THER W-MINERALS TABLET PO SCH (09:59)
[2022-04-19] MEDS: THIAMINE HCL 100MG TABLET PO SCH (09:59)
[2022-04-19] MEDS: POTASSIUM CHLORIDE 20MEQ TABLET SR PO SCH (10:00)
[2022-04-19] MEDS: FOLIC ACID 1MG TABLET PO SCH (10:00)
[2022-04-19] MEDS: MIDODRINE HCL 5MG TABLET PO SCH ×3 (10:01→17:35)
[2022-04-19] MEDS: CITRIC ACID/SODIUM CITRATE SOLN 30ML UDC PO SCH ×3 (10:01→17:35)
[2022-04-19] MEDS: DOXYCYCLINE 100 MG in DEXT 5% WATER 100 ML IV SCH ×2 (10:01→21:10)
[2022-04-19] MEDS: PANTOPRAZOLE SODIUM 40 MG/VIAL IV SCH (13:24)
[2022-04-19] MEDS: DEXTROSE 50% WATER 50ML SYRINGE IV PRN ×3 (14:10→23:23)
[2022-04-19] MEDS ORDERED: DEXT 5%/0.45% NACL 1000ML 1,000 ML IV SCH (17:30)
[2022-04-20] VITALS (98 sets, daily range): BP systolic 75–140; BP diastolic 45–95
[2022-04-20] MEDS: METRONIDAZOLE 500 MG PREMIX 100 ML IV SCH ×3 (01:26→17:14)
[2022-04-20] MEDS: FENTANYL CITRATE/PF 2,500 MCG in SODIUM CHLORIDE 0.9% 200 ML IV PRN (01:26)
[2022-04-20] MEDS: ALBUTEROL (0.083%) 2.5MG/3ML NEB HHN SCH ×5 (04:02→20:46)
[2022-04-20 05:05] LABS: HEMATOCRIT. 24.8 % (42.0-52.0); HEMOGLOBIN. 7.8 g/dL (14.0-18.0); MEAN CORPUSCULAR HEMOGLOBIN 28.3 pg (28.0-32.0); MEAN CORPUSCULAR VOLUME 89.7 fL (80.0-94.0); MEAN PLATELET VOLUME 9.8 fl (7.4-10.4); PLATELET 115 x1000/uL (130-400); RED BLOOD CELL COUNT 2.77 mill/uL (4.7-6.1); RED CELL DISTRIBUTION WIDTH 17.8 % (11.6-14.6)
[2022-04-20 05:28] LABS: CHLORIDE 118 mEq/L (98-107); PHOSPHORUS 3.6 mg/dL (2.5-4.9)
[2022-04-20] MEDS: INSULIN LISPRO 100 UNITS/ML SUBCUT SCH ×5 (06:00→23:44)
[2022-04-20] MEDS: BLOOD SUGAR DIAGNOSTIC STRIP TEST SCH ×3 (06:03→17:15)
[2022-04-20] MEDS: CEFEPIME 2,000 MG in DEXT 5% WATER 100 ML IV SCH ×2 (06:06→17:14)
[2022-04-20] MEDS: DOXYCYCLINE 100 MG in DEXT 5% WATER 100 ML IV SCH ×2 (08:07→20:01)
[2022-04-20] MEDS: CITRIC ACID/SODIUM CITRATE SOLN 30ML UDC PO SCH ×3 (08:07→17:14)
[2022-04-20] MEDS: FOLIC ACID 1MG TABLET PO SCH (08:07)
[2022-04-20] MEDS: MULTIVITAMINS,THER W-MINERALS TABLET PO SCH (08:07)
[2022-04-20] MEDS: POTASSIUM CHLORIDE 20MEQ TABLET SR PO SCH (08:07)
[2022-04-20] MEDS: THIAMINE HCL 100MG TABLET PO SCH (08:07)
[2022-04-20] MEDS: PANTOPRAZOLE SODIUM 40 MG/VIAL IV SCH (08:07)
[2022-04-20] MEDS: MIDODRINE HCL 5MG TABLET PO SCH ×3 (08:08→17:14)
[2022-04-20] MEDS: ACETYLCYSTEINE 200MG/ML 20% VIAL 10ML INH SCH ×2 (09:08→16:32)
[2022-04-20 09:41] LABS: NUCLEATED RED BLOOD CELLS 3 /100 WBC; PLATELET ESTIMATE DECREASED
[2022-04-20 14:48] LABS: BG BASE EXCESS -3.4 mmol/L (-2.0-2.0); BG CARBOXYHEMOGLOBIN 0.3 % (0.5-1.5); BG DEOXYHEMOGLOBIN 2.4 % (0.0-5.0); BG FRACTION INSPIRED OXYGEN 50; BG HCO3 ACT 21.2 mmol/L (22.0-26.0); BG METHEMOGLOBIN 0.5 % (0.0-1.5); BG OXYGEN SATURATION 97.6 % (92.0-98.5); BG OXYHEMOGLOBIN 96.8 % (94.0-97.0); BG PCO2 36.1 mmHg (35.0-45.0); BG PH 7.387 (7.350-7.450); BG PO2 112.3 mmHg (75.0-100.0); BG SAMPLE SITE LEFT RADIAL; BG TOTAL HEMOGLOBIN 8.3 g/dL (12.0-18.0); BG VENT MODE VENT - AC
[2022-04-20] MEDS: ACETAMINOPHEN 325MG TABLET PO PRN (20:01)
[2022-04-21] VITALS (88 sets, daily range): BP systolic 77–122; BP diastolic 47–77
[2022-04-21] MEDS: ACETYLCYSTEINE 200MG/ML 20% VIAL 10ML INH SCH (00:24)
[2022-04-21] MEDS: ALBUTEROL (0.083%) 2.5MG/3ML NEB HHN SCH ×5 (00:25→17:21)
[2022-04-21] MEDS: BLOOD SUGAR DIAGNOSTIC STRIP TEST SCH ×4 (00:54→17:45)
[2022-04-21] MEDS: CEFEPIME 2,000 MG in DEXT 5% WATER 100 ML IV SCH (05:14)
[2022-04-21 05:28] LABS: HEMATOCRIT. 24.6 % (42.0-52.0); MEAN CORPUSCULAR HEMOGLOBIN 28.1 pg (28.0-32.0); MEAN CORPUSCULAR VOLUME 86.1 fL (80.0-94.0); MEAN PLATELET VOLUME 9.8 fl (7.4-10.4); PLATELET 115 x1000/uL (130-400); RED BLOOD CELL COUNT 2.85 mill/uL (4.7-6.1)
[2022-04-21 05:33] LABS: CHLORIDE 119 mEq/L (98-107)
[2022-04-21] MEDS: INSULIN LISPRO 100 UNITS/ML SUBCUT SCH ×3 (06:00→17:45)
[2022-04-21 07:39] LABS: ATYPICAL LYMPHOCYTES 1; NUCLEATED RED BLOOD CELLS 1 /100 WBC; PLATELET ESTIMATE SLIGHTLY DECREASED
[2022-04-21] MEDS: PANTOPRAZOLE SODIUM 40 MG/VIAL IV SCH (08:35)
[2022-04-21] MEDS: CITRIC ACID/SODIUM CITRATE SOLN 30ML UDC PO SCH ×3 (08:36→16:01)
[2022-04-21] MEDS: MULTIVITAMINS,THER W-MINERALS TABLET PO SCH (08:37)
[2022-04-21] MEDS: POTASSIUM CHLORIDE 20MEQ TABLET SR PO SCH (08:38)
[2022-04-21] MEDS: DOXYCYCLINE 100 MG in DEXT 5% WATER 100 ML IV SCH ×2 (08:40→21:36)
[2022-04-21] MEDS: FOLIC ACID 1MG TABLET PO SCH (08:40)
[2022-04-21] MEDS: MIDODRINE HCL 5MG TABLET PO SCH ×3 (08:43→16:01)
[2022-04-21] MEDS: THIAMINE HCL 100MG TABLET PO SCH (08:43)
[2022-04-21 09:01] LABS: BG CARBOXYHEMOGLOBIN 0.3 % (0.5-1.5); BG DEOXYHEMOGLOBIN 1.6 % (0.0-5.0); BG FRACTION INSPIRED OXYGEN 50; BG HCO3 ACT 22.6 mmol/L (22.0-26.0); BG METHEMOGLOBIN 0.5 % (0.0-1.5); BG OXYGEN SATURATION 98.4 % (92.0-98.5); BG OXYHEMOGLOBIN 97.6 % (94.0-97.0); BG PCO2 37.9 mmHg (35.0-45.0); BG PH 7.393 (7.350-7.450); BG PO2 140.4 mmHg (75.0-100.0); BG SAMPLE SITE RIGHT RADIAL; BG TOTAL HEMOGLOBIN 11.2 g/dL (12.0-18.0); BG VENT MODE VENT - AC
[2022-04-21 10:06] LABS: ABSOLUTE BASOPHILS 0.3 x10E3/uL (0.0-0.2); ABSOLUTE LYMPHOCYTES 1.5 x10E3/uL (0.7-3.1); ABSOLUTE MONOCYTES 0.4 x10E3/uL (0.1-0.9); BASOPHILS 2 % (Not Estab.); HEMATOCRIT 25.6 % (37.5-51.0); HEMATOLOGY COMMENT Note: (.); HEMOGLOBIN 8.5 g/dL (13.0-17.7); LYMPHOCYTES 12 % (Not Estab.); MEAN CORPUSCULAR HEMOGLOBIN 28.4 pg (26.6-33.0); MEAN CORPUSCULAR HGB CONC. 33.2 g/dL (31.5-35.7); MEAN CORPUSCULAR VOLUME 86 fL (79-97); MONOCYTES 3 % (Not Estab.); NEUTROPHILS 74 % (Not Estab.); PLATELETS 95 x10E3/uL (150-450); RBC 2.99 x10E6/uL (4.14-5.80); RED CELL DISTRIBUTION WIDTH 14.4 % (11.6-15.4); WBC 12.5 x10E3/uL (3.4-10.8)
[2022-04-21 11:53] LABS: BG BASE EXCESS 0.4 mmol/L (-2.0-2.0); BG CARBOXYHEMOGLOBIN 0.3 % (0.5-1.5); BG DEOXYHEMOGLOBIN 2.7 % (0.0-5.0); BG FRACTION INSPIRED OXYGEN 50; BG HCO3 ACT 24.8 mmol/L (22.0-26.0); BG METHEMOGLOBIN 0.5 % (0.0-1.5); BG OXYGEN SATURATION 97.3 % (92.0-98.5); BG OXYHEMOGLOBIN 96.5 % (94.0-97.0); BG PCO2 38.6 mmHg (35.0-45.0); BG PH 7.425 (7.350-7.450); BG PO2 100.5 mmHg (75.0-100.0); BG SAMPLE SITE RIGHT RADIAL; BG TOTAL HEMOGLOBIN 8.8 g/dL (12.0-18.0); BG VENT MODE VENT - CPAP
[2022-04-21] MEDS ORDERED: LORAZEPAM 2MG/ML CPJ IM PRN (13:00)
[2022-04-21] MEDS: MEROPENEM 1,000 MG in SODIUM CHLORIDE 0.9% 100 ML IV SCH ×2 (14:27→21:38)
[2022-04-21] MEDS: NOREPINEPHRINE 32 MG in DEXT 5% WATER 218 ML IV PRN (16:13)
[2022-04-22] VITALS (93 sets, daily range): BP systolic 74–125; BP diastolic 44–70
[2022-04-22] MEDS: BLOOD SUGAR DIAGNOSTIC STRIP TEST SCH ×4 (05:26→17:00)
[2022-04-22 05:48] LABS: HEMATOCRIT. 23.4 % (42.0-52.0); HEMOGLOBIN. 7.8 g/dL (14.0-18.0); MEAN CORPUSCULAR HEMOGLOBIN 28.5 pg (28.0-32.0); MEAN CORPUSCULAR VOLUME 86.2 fL (80.0-94.0); MEAN PLATELET VOLUME 9.5 fl (7.4-10.4); PLATELET 114 x1000/uL (130-400); RED BLOOD CELL COUNT 2.72 mill/uL (4.7-6.1); RED CELL DISTRIBUTION WIDTH 17.3 % (11.6-14.6)
[2022-04-22] MEDS: MEROPENEM 1,000 MG in SODIUM CHLORIDE 0.9% 100 ML IV SCH ×3 (05:51→21:48)
[2022-04-22] MEDS: INSULIN LISPRO 100 UNITS/ML SUBCUT SCH ×4 (05:51→17:00)
[2022-04-22 06:06] LABS: CHLORIDE 111 mEq/L (98-107)
[2022-04-22 07:03] LABS: PHOSPHORUS 3.4 mg/dL (2.5-4.9)
[2022-04-22] MEDS: CITRIC ACID/SODIUM CITRATE SOLN 30ML UDC PO SCH ×3 (08:16→16:59)
[2022-04-22] MEDS: PANTOPRAZOLE SODIUM 40 MG/VIAL IV SCH (08:16)
[2022-04-22] MEDS: DOXYCYCLINE 100 MG in DEXT 5% WATER 100 ML IV SCH ×2 (08:16→20:06)
[2022-04-22] MEDS: MULTIVITAMINS,THER W-MINERALS TABLET PO SCH (08:16)
[2022-04-22] MEDS: FOLIC ACID 1MG TABLET PO SCH (08:17)
[2022-04-22] MEDS: THIAMINE HCL 100MG TABLET PO SCH (08:17)
[2022-04-22] MEDS: MIDODRINE HCL 5MG TABLET PO SCH ×3 (08:17→17:00)
[2022-04-22 08:56] LABS: BG BASE EXCESS 3.2 mmol/L (-2.0-2.0); BG CARBOXYHEMOGLOBIN 0.3 % (0.5-1.5); BG DEOXYHEMOGLOBIN 1.9 % (0.0-5.0); BG FRACTION INSPIRED OXYGEN 40; BG METHEMOGLOBIN 0.5 % (0.0-1.5); BG OXYGEN SATURATION 98.1 % (92.0-98.5); BG OXYHEMOGLOBIN 97.3 % (94.0-97.0); BG PCO2 37.4 mmHg (35.0-45.0); BG PH 7.476 (7.350-7.450); BG PO2 117.6 mmHg (75.0-100.0); BG SAMPLE SITE LEFT RADIAL; BG TOTAL HEMOGLOBIN 7.8 g/dL (12.0-18.0); BG VENT MODE VENT - CPAP
[2022-04-22 10:06] LABS: % CD 3 POS. LYMPHOCYTES 79.4 % (57.5-86.2); % CD 4 POS. LYMPHOCYTES 70.2 % (30.8-58.5); % CD 8 POS. LYMPH 10.8 % (12.0-35.5); ABSOLUTE CD 3 1191 /uL (622-2402); ABSOLUTE CD 4 HELPER 1053 /uL (359-1519); ABSOLUTE CD 8 SUPPRESSOR 162 /uL (109-897)
[2022-04-22] MEDS ORDERED: LORAZEPAM 2MG/ML CPJ IV PRN (13:00)
[2022-04-22 14:14] LABS: PLATELET ESTIMATE SLIGHTLY DECREASED
[2022-04-23] VITALS (90 sets, daily range): BP systolic 85–139; BP diastolic 52–78
[2022-04-23 05:26] LABS: HEMATOCRIT. 23.2 % (42.0-52.0); HEMOGLOBIN. 7.7 g/dL (14.0-18.0); MEAN CORPUSCULAR HEMOGLOBIN 28.4 pg (28.0-32.0); MEAN CORPUSCULAR VOLUME 85.3 fL (80.0-94.0); MEAN PLATELET VOLUME 9.2 fl (7.4-10.4); PLATELET 116 x1000/uL (130-400); RED BLOOD CELL COUNT 2.72 mill/uL (4.7-6.1); RED CELL DISTRIBUTION WIDTH 16.9 % (11.6-14.6)
[2022-04-23 05:56] LABS: CHLORIDE 109 mEq/L (98-107)
[2022-04-23] MEDS: BLOOD SUGAR DIAGNOSTIC STRIP TEST SCH ×5 (06:00→23:37)
[2022-04-23] MEDS: INSULIN LISPRO 100 UNITS/ML SUBCUT SCH ×5 (06:00→23:37)
[2022-04-23] MEDS: MEROPENEM 1,000 MG in SODIUM CHLORIDE 0.9% 100 ML IV SCH (06:01)
[2022-04-23] MEDS: FOLIC ACID 1MG TABLET PO SCH (08:09)
[2022-04-23] MEDS: PANTOPRAZOLE SODIUM 40 MG/VIAL IV SCH (08:09)
[2022-04-23] MEDS: MULTIVITAMINS,THER W-MINERALS TABLET PO SCH (08:09)
[2022-04-23] MEDS: MIDODRINE HCL 5MG TABLET PO SCH ×3 (08:09→17:28)
[2022-04-23] MEDS: THIAMINE HCL 100MG TABLET PO SCH (08:09)
[2022-04-23] MEDS: CITRIC ACID/SODIUM CITRATE SOLN 30ML UDC PO SCH ×3 (08:09→17:28)
[2022-04-23] MEDS: DOXYCYCLINE 100 MG in DEXT 5% WATER 100 ML IV SCH ×2 (08:10→20:15)
[2022-04-23 08:52] LABS: BG BASE EXCESS 6.3 mmol/L (-2.0-2.0); BG CARBOXYHEMOGLOBIN 0.3 % (0.5-1.5); BG DEOXYHEMOGLOBIN 1.9 % (0.0-5.0); BG FRACTION INSPIRED OXYGEN 40; BG HCO3 ACT 29.3 mmol/L (22.0-26.0); BG METHEMOGLOBIN 0.5 % (0.0-1.5); BG OXYGEN SATURATION 98.1 % (92.0-98.5); BG OXYHEMOGLOBIN 97.3 % (94.0-97.0); BG PCO2 35.5 mmHg (35.0-45.0); BG PH 7.534 (7.350-7.450); BG PO2 106.7 mmHg (75.0-100.0); BG SAMPLE SITE LEFT BRACHIAL; BG TOTAL HEMOGLOBIN 8.1 g/dL (12.0-18.0); BG TOTAL RESPIRATORY RATE 25 b/min; BG VENT MODE VENT - SIMV
[2022-04-23 09:07] LABS: NUCLEATED RED BLOOD CELLS 1 /100 WBC; PLATELET ESTIMATE DECREASED
[2022-04-23 13:29] LABS: BG BASE EXCESS 5.6 mmol/L (-2.0-2.0); BG CARBOXYHEMOGLOBIN 0.3 % (0.5-1.5); BG DEOXYHEMOGLOBIN 2.7 % (0.0-5.0); BG FRACTION INSPIRED OXYGEN 40; BG HCO3 ACT 28.9 mmol/L (22.0-26.0); BG METHEMOGLOBIN 0.4 % (0.0-1.5); BG OXYGEN SATURATION 97.3 % (92.0-98.5); BG OXYHEMOGLOBIN 96.6 % (94.0-97.0); BG PCO2 37.1 mmHg (35.0-45.0); BG PO2 100.1 mmHg (75.0-100.0); BG SAMPLE SITE LEFT BRACHIAL; BG TOTAL HEMOGLOBIN 8.3 g/dL (12.0-18.0); BG TOTAL RESPIRATORY RATE 28 b/min; BG VENT MODE VENT - CPAP
[2022-04-23] MEDS: MEROPENEM-0.9% SODIUM CHLORIDE 50 ML IV SCH ×2 (13:45→21:23)
[2022-04-24] VITALS (96 sets, daily range): BP systolic 89–137; BP diastolic 54–97
[2022-04-24 05:41] LABS: HEMATOCRIT. 21.6 % (42.0-52.0); HEMOGLOBIN. 7.2 g/dL (14.0-18.0); MEAN CORPUSCULAR HEMOGLOBIN 28.4 pg (28.0-32.0); MEAN CORPUSCULAR VOLUME 84.8 fL (80.0-94.0); PLATELET 116 x1000/uL (130-400); RED BLOOD CELL COUNT 2.55 mill/uL (4.7-6.1); RED CELL DISTRIBUTION WIDTH 16.3 % (11.6-14.6)
[2022-04-24 05:48] LABS: CHLORIDE 108 mEq/L (98-107)
[2022-04-24] MEDS: INSULIN LISPRO 100 UNITS/ML SUBCUT SCH ×4 (06:00→23:51)
[2022-04-24 06:03] LABS: PHOSPHORUS 3.2 mg/dL (2.5-4.9)
[2022-04-24] MEDS: BLOOD SUGAR DIAGNOSTIC STRIP TEST SCH ×4 (06:06→23:51)
[2022-04-24] MEDS: MEROPENEM-0.9% SODIUM CHLORIDE 50 ML IV SCH ×3 (06:08→23:00)
[2022-04-24 06:28] LABS: PLATELET ESTIMATE NORMAL
[2022-04-24] MEDS ORDERED: POTASSIUM CHLORIDE 20MEQ/PACKET PO SCH (08:00)
[2022-04-24 08:19] LABS: BG BASE EXCESS 6.4 mmol/L (-2.0-2.0); BG CARBOXYHEMOGLOBIN 0.2 % (0.5-1.5); BG DEOXYHEMOGLOBIN 1.8 % (0.0-5.0); BG FRACTION INSPIRED OXYGEN 40; BG HCO3 ACT 28.5 mmol/L (22.0-26.0); BG METHEMOGLOBIN 0.6 % (0.0-1.5); BG OXYGEN SATURATION 98.2 % (92.0-98.5); BG OXYHEMOGLOBIN 97.4 % (94.0-97.0); BG PH 7.582 (7.350-7.450); BG PO2 112.8 mmHg (75.0-100.0); BG SAMPLE SITE LEFT BRACHIAL; BG VENT MODE VENT - AC
[2022-04-24] MEDS: FOLIC ACID 1MG TABLET PO SCH (08:39)
[2022-04-24] MEDS: THIAMINE HCL 100MG TABLET PO SCH (08:39)
[2022-04-24] MEDS: PANTOPRAZOLE SODIUM 40 MG/VIAL IV SCH (08:39)
[2022-04-24] MEDS: DOXYCYCLINE 100 MG in DEXT 5% WATER 100 ML IV SCH ×2 (08:39→22:01)
[2022-04-24] MEDS: MULTIVITAMINS,THER W-MINERALS TABLET PO SCH (08:39)
[2022-04-24] MEDS: CITRIC ACID/SODIUM CITRATE SOLN 30ML UDC PO SCH ×3 (08:39→17:09)
[2022-04-24] MEDS: MIDODRINE HCL 5MG TABLET PO SCH ×3 (08:40→17:10)
[2022-04-24 12:22] LABS: BG BASE EXCESS 5.4 mmol/L (-2.0-2.0); BG CARBOXYHEMOGLOBIN 0.3 % (0.5-1.5); BG DEOXYHEMOGLOBIN 1.8 % (0.0-5.0); BG FRACTION INSPIRED OXYGEN 40; BG HCO3 ACT 28.7 mmol/L (22.0-26.0); BG METHEMOGLOBIN 0.3 % (0.0-1.5); BG OXYGEN SATURATION 98.2 % (92.0-98.5); BG OXYHEMOGLOBIN 97.6 % (94.0-97.0); BG PCO2 36.7 mmHg (35.0-45.0); BG PH 7.511 (7.350-7.450); BG PO2 139.6 mmHg (75.0-100.0); BG SAMPLE SITE LEFT BRACHIAL; BG TOTAL HEMOGLOBIN 9.2 g/dL (12.0-18.0); BG TOTAL RESPIRATORY RATE 28 b/min; BG VENT MODE VENT - CPAP
[2022-04-24] MEDS: DEXT 5%/0.45% NACL 1000ML 1,000 ML IV SCH (17:09)
[2022-04-25] VITALS (64 sets, daily range): BP systolic 105–142; BP diastolic 64–83
[2022-04-25] MEDS: BLOOD SUGAR DIAGNOSTIC STRIP TEST SCH ×3 (05:27→18:05)
[2022-04-25] MEDS: MEROPENEM-0.9% SODIUM CHLORIDE 50 ML IV SCH ×3 (05:27→22:25)
[2022-04-25] MEDS: INSULIN LISPRO 100 UNITS/ML SUBCUT SCH ×3 (05:27→18:00)
[2022-04-25 05:45] LABS: BASOPHILS % 0.9 % (0.0-2.0); EOSINOPHILS % 1.4 % (0.0-5.0); HEMATOCRIT. 22.6 % (42.0-52.0); HEMOGLOBIN. 7.5 g/dL (14.0-18.0); LYMPHOCYTES % 15.4 % (20.0-50.0); MEAN CORPUSCULAR HEMOGLOBIN 28.3 pg (28.0-32.0); MEAN PLATELET VOLUME 9.3 fl (7.4-10.4); MONOCYTES % 8.3 % (2.0-8.0); PLATELET 124 x1000/uL (130-400); RED BLOOD CELL COUNT 2.66 mill/uL (4.7-6.1)
[2022-04-25 05:59] LABS: CHLORIDE 108 mEq/L (98-107)
[2022-04-25 06:03] LABS: PHOSPHORUS 3.7 mg/dL (2.5-4.9)
[2022-04-25 08:49] LABS: BG BASE EXCESS 6.6 mmol/L (-2.0-2.0); BG CARBOXYHEMOGLOBIN 0.8 % (0.5-1.5); BG DEOXYHEMOGLOBIN 4.4 % (0.0-5.0); BG FRACTION INSPIRED OXYGEN 55; BG HCO3 ACT 29.9 mmol/L (22.0-26.0); BG METHEMOGLOBIN 0.4 % (0.0-1.5); BG OXYGEN SATURATION 95.5 % (92.0-98.5); BG OXYHEMOGLOBIN 94.4 % (94.0-97.0); BG PCO2 36.9 mmHg (35.0-45.0); BG PH 7.526 (7.350-7.450); BG SAMPLE SITE RIGHT RADIAL; BG TOTAL HEMOGLOBIN 7.8 g/dL (12.0-18.0); BG VENT MODE MASK - BIPAP
[2022-04-25] MEDS: PANTOPRAZOLE SODIUM 40 MG/VIAL IV SCH (08:58)
[2022-04-25] MEDS: FOLIC ACID 1MG TABLET PO SCH (08:58)
[2022-04-25] MEDS: CITRIC ACID/SODIUM CITRATE SOLN 30ML UDC PO SCH ×2 (08:58→13:38)
[2022-04-25] MEDS: MULTIVITAMINS,THER W-MINERALS TABLET PO SCH (08:58)
[2022-04-25] MEDS: DOXYCYCLINE 100 MG in DEXT 5% WATER 100 ML IV SCH ×2 (09:03→21:10)
[2022-04-25] MEDS: MIDODRINE HCL 5MG TABLET PO SCH ×3 (09:57→18:35)
[2022-04-25] MEDS: THIAMINE HCL 100MG TABLET PO SCH (09:58)
[2022-04-25] MEDS: DEXT 5%/0.45% NACL 1000ML 1,000 ML IV SCH (09:58)
[2022-04-25] MEDS: IPRATROPIUM/ALBUTEROL 0.5-3(2.5)MG/3ML NEB HHN SCH ×3 (13:05→19:54)
[2022-04-25] MEDS: ACETYLCYSTEINE 200MG/ML 20% VIAL 10ML INH SCH (13:05)
[2022-04-25] MEDS: METHYLPREDNISOLONE SOD SUCC 40 MG/ML VIAL IV SCH ×2 (13:38→21:11)
[2022-04-25] MEDS ORDERED: FUROSEMIDE 20MG/2ML VIAL IVP NR (14:00)
[2022-04-25 14:09] LABS: BG BASE EXCESS 5.6 mmol/L (-2.0-2.0); BG CARBOXYHEMOGLOBIN 0.3 % (0.5-1.5); BG DEOXYHEMOGLOBIN 6.9 % (0.0-5.0); BG FRACTION INSPIRED OXYGEN 100; BG HCO3 ACT 30.5 mmol/L (22.0-26.0); BG METHEMOGLOBIN 0.2 % (0.0-1.5); BG OXYGEN SATURATION 93.1 % (92.0-98.5); BG OXYHEMOGLOBIN 92.6 % (94.0-97.0); BG PCO2 46.3 mmHg (35.0-45.0); BG PH 7.436 (7.350-7.450); BG PO2 71.3 mmHg (75.0-100.0); BG SAMPLE SITE RIGHT RADIAL; BG VENT MODE HIGH FLOW
[2022-04-25 22:08] LABS: BG BASE EXCESS 6.4 mmol/L (-2.0-2.0); BG CARBOXYHEMOGLOBIN 0.3 % (0.5-1.5); BG DEOXYHEMOGLOBIN 1.8 % (0.0-5.0); BG FRACTION INSPIRED OXYGEN 100; BG HCO3 ACT 29.8 mmol/L (22.0-26.0); BG METHEMOGLOBIN 0.4 % (0.0-1.5); BG OXYGEN SATURATION 98.2 % (92.0-98.5); BG OXYHEMOGLOBIN 97.5 % (94.0-97.0); BG PCO2 38.3 mmHg (35.0-45.0); BG PH 7.509 (7.350-7.450); BG PO2 128.3 mmHg (75.0-100.0); BG TOTAL HEMOGLOBIN 10.3 g/dL (12.0-18.0); BG TOTAL RESPIRATORY RATE 27 b/min; BG VENT MODE MASK - BIPAP
[2022-04-26] VITALS (43 sets, daily range): BP systolic 93–162; BP diastolic 53–87
[2022-04-26] MEDS: IPRATROPIUM/ALBUTEROL 0.5-3(2.5)MG/3ML NEB HHN SCH ×5 (00:04→20:10)
[2022-04-26] MEDS: BLOOD SUGAR DIAGNOSTIC STRIP TEST SCH ×4 (00:26→18:00)
[2022-04-26] MEDS: DEXT 5%/0.45% NACL 1000ML 1,000 ML IV SCH ×2 (02:20→20:00)
[2022-04-26 05:49] LABS: CHLORIDE 107 mEq/L (98-107)
[2022-04-26 05:56] LABS: BASOPHILS % 0.3 % (0.0-2.0); EOSINOPHILS % 0.1 % (0.0-5.0); HEMATOCRIT. 26.7 % (42.0-52.0); HEMOGLOBIN. 8.5 g/dL (14.0-18.0); LYMPHOCYTES % 7.7 % (20.0-50.0); MEAN CORPUSCULAR HEMOGLOBIN 28.6 pg (28.0-32.0); MEAN CORPUSCULAR VOLUME 89.9 fL (80.0-94.0); MONOCYTES % 2.8 % (2.0-8.0); NEUTROPHILS % 89.1 % (40.0-76.0); RED BLOOD CELL COUNT 2.96 mill/uL (4.7-6.1); RED CELL DISTRIBUTION WIDTH 16.6 % (11.6-14.6)
[2022-04-26] MEDS: INSULIN LISPRO 100 UNITS/ML SUBCUT SCH ×4 (06:00→18:00)
[2022-04-26] MEDS: MEROPENEM-0.9% SODIUM CHLORIDE 50 ML IV SCH (06:34)
[2022-04-26] MEDS: METHYLPREDNISOLONE SOD SUCC 40 MG/ML VIAL IV SCH ×3 (06:34→21:24)
[2022-04-26 08:32] LABS: BG BASE EXCESS 4.4 mmol/L (-2.0-2.0); BG CARBOXYHEMOGLOBIN 0.3 % (0.5-1.5); BG DEOXYHEMOGLOBIN 6.7 % (0.0-5.0); BG FRACTION INSPIRED OXYGEN 80; BG METHEMOGLOBIN 0.3 % (0.0-1.5); BG OXYGEN SATURATION 93.3 % (92.0-98.5); BG OXYHEMOGLOBIN 92.7 % (94.0-97.0); BG PCO2 37.9 mmHg (35.0-45.0); BG PH 7.487 (7.350-7.450); BG PO2 70.9 mmHg (75.0-100.0); BG SAMPLE SITE RIGHT RADIAL; BG TOTAL HEMOGLOBIN 8.9 g/dL (12.0-18.0); BG VENT MODE MASK - BIPAP
[2022-04-26] MEDS: DOXYCYCLINE 100 MG in DEXT 5% WATER 100 ML IV SCH (08:58)
[2022-04-26] MEDS: PANTOPRAZOLE SODIUM 40 MG/VIAL IV SCH (09:00)
[2022-04-26] MEDS: MULTIVITAMINS,THER W-MINERALS TABLET PO SCH (09:00)
[2022-04-26] MEDS ORDERED: FUROSEMIDE 20MG/2ML VIAL IVP NR (09:15)
[2022-04-26] MEDS ORDERED: KCL 20MEQ/100ML PREMIX 100 ML IV NR (09:30)
[2022-04-26 09:48] LABS: MEAN PLATELET VOLUME 10.5 fl (7.4-10.4); PLATELET 134 x1000/uL (130-400)
[2022-04-26] MEDS: FOLIC ACID 1MG TABLET PO SCH (10:54)
[2022-04-26] MEDS: THIAMINE HCL 100MG TABLET PO SCH (10:54)
[2022-04-26] MEDS: MIDODRINE HCL 5MG TABLET PO SCH ×3 (10:54→17:54)
[2022-04-26] MEDS: ACETYLCYSTEINE 200MG/ML 20% VIAL 10ML INH SCH (16:10)
[2022-04-27] VITALS (78 sets, daily range): BP systolic 73–157; BP diastolic 35–101
[2022-04-27] MEDS: ACETYLCYSTEINE 200MG/ML 20% VIAL 10ML INH SCH (00:45)
[2022-04-27] MEDS: IPRATROPIUM/ALBUTEROL 0.5-3(2.5)MG/3ML NEB HHN SCH ×4 (04:10→20:54)
[2022-04-27 04:49] LABS: HEMATOCRIT. 24.1 % (42.0-52.0); HEMOGLOBIN. 7.8 g/dL (14.0-18.0); MEAN CORPUSCULAR HEMOGLOBIN 27.9 pg (28.0-32.0); MEAN CORPUSCULAR VOLUME 86.1 fL (80.0-94.0); PLATELET 203 x1000/uL (130-400); RED CELL DISTRIBUTION WIDTH 16.9 % (11.6-14.6)
[2022-04-27] MEDS: METHYLPREDNISOLONE SOD SUCC 40 MG/ML VIAL IV SCH ×3 (05:14→21:11)
[2022-04-27 05:55] LABS: CHLORIDE 105 mEq/L (98-107)
[2022-04-27] MEDS: INSULIN LISPRO 100 UNITS/ML SUBCUT SCH ×4 (06:00→17:00)
[2022-04-27] MEDS: BLOOD SUGAR DIAGNOSTIC STRIP TEST SCH ×4 (06:00→17:00)
[2022-04-27 08:09] LABS: BG BASE EXCESS 4.9 mmol/L (-2.0-2.0); BG CARBOXYHEMOGLOBIN 0.3 % (0.5-1.5); BG DEOXYHEMOGLOBIN 14.1 % (0.0-5.0); BG HCO3 ACT 30.1 mmol/L (22.0-26.0); BG METHEMOGLOBIN 0.3 % (0.0-1.5); BG OXYGEN SATURATION 85.8 % (92.0-98.5); BG OXYHEMOGLOBIN 85.3 % (94.0-97.0); BG PCO2 48.4 mmHg (35.0-45.0); BG PH 7.412 (7.350-7.450); BG PO2 57.6 mmHg (75.0-100.0); BG SAMPLE SITE RIGHT RADIAL; BG TOTAL HEMOGLOBIN 8.2 g/dL (12.0-18.0); BG VENT MODE MASK - BIPAP
[2022-04-27 08:36] LABS: PLATELET ESTIMATE NORMAL
[2022-04-27] MEDS ORDERED: SODIUM CHLORIDE 0.9% 250 ML IV ONE (08:45)
[2022-04-27] MEDS: MIDODRINE HCL 5MG TABLET PO SCH ×3 (08:51→16:29)
[2022-04-27] MEDS: PANTOPRAZOLE SODIUM 40 MG/VIAL IV SCH (08:51)
[2022-04-27] MEDS: FOLIC ACID 1MG TABLET PO SCH (08:51)
[2022-04-27] MEDS: MULTIVITAMINS,THER W-MINERALS TABLET PO SCH (08:51)
[2022-04-27] MEDS: THIAMINE HCL 100MG TABLET PO SCH (08:51)
[2022-04-27] MEDS ORDERED: POTASSIUM CHLORIDE 20MEQ/PACKET PO NR (09:00)
[2022-04-27] MEDS ORDERED: PROPOFOL 10MG/ML 100ML 100 ML IV PRN (09:30)
[2022-04-27] MEDS: PROPOFOL 10MG/ML 100ML 100 ML IV PRN (09:46)
[2022-04-27] MEDS: FUROSEMIDE 40MG/4ML VIAL IVP SCH ×2 (09:47→16:28)
[2022-04-27 09:48] LABS: BG BASE EXCESS 4.2 mmol/L (-2.0-2.0); BG CARBOXYHEMOGLOBIN 0.3 % (0.5-1.5); BG DEOXYHEMOGLOBIN 0.6 % (0.0-5.0); BG FRACTION INSPIRED OXYGEN 100; BG HCO3 ACT 29.5 mmol/L (22.0-26.0); BG METHEMOGLOBIN 0.3 % (0.0-1.5); BG OXYGEN SATURATION 99.4 % (92.0-98.5); BG OXYHEMOGLOBIN 98.8 % (94.0-97.0); BG PCO2 48.5 mmHg (35.0-45.0); BG PH 7.402 (7.350-7.450); BG PO2 277.1 mmHg (75.0-100.0); BG SAMPLE SITE LEFT RADIAL; BG TOTAL HEMOGLOBIN 8.4 g/dL (12.0-18.0); BG TOTAL RESPIRATORY RATE 30 b/min; BG VENT MODE VENT - AC
[2022-04-27] MEDS: DEXT 5%/0.45% NACL 1000ML 1,000 ML IV SCH (10:57)
[2022-04-27] MEDS: CEFEPIME 1,000 MG in DEXTROSE 5% WATER 50 ML IV SCH ×2 (12:46→21:10)
[2022-04-27 14:24] LABS: PHOSPHORUS 3.7 mg/dL (2.5-4.9)
[2022-04-27] MEDS ORDERED: CEFEPIME HCL 1000MG/VIAL INJ IV SCH (21:00)
[2022-04-28] VITALS (94 sets, daily range): BP systolic 96–129; BP diastolic 51–79
[2022-04-28] MEDS: BLOOD SUGAR DIAGNOSTIC STRIP TEST SCH ×4 (00:11→17:03)
[2022-04-28] MEDS: IPRATROPIUM/ALBUTEROL 0.5-3(2.5)MG/3ML NEB HHN SCH ×6 (00:41→21:06)
[2022-04-28 04:36] LABS: HEMATOCRIT. 21.3 % (42.0-52.0); MEAN CORPUSCULAR HEMOGLOBIN 27.1 pg (28.0-32.0); MEAN CORPUSCULAR VOLUME 84.5 fL (80.0-94.0); MEAN PLATELET VOLUME 10.2 fl (7.4-10.4); PLATELET 252 x1000/uL (130-400); RED BLOOD CELL COUNT 2.52 mill/uL (4.7-6.1); RED CELL DISTRIBUTION WIDTH 16.5 % (11.6-14.6)
[2022-04-28 04:43] LABS: CHLORIDE 106 mEq/L (98-107)
[2022-04-28 05:10] LABS: HEMOGLOBIN. 6.8 g/dL (14.0-18.0)
[2022-04-28] MEDS: METHYLPREDNISOLONE SOD SUCC 40 MG/ML VIAL IV SCH ×3 (05:30→21:37)
[2022-04-28] MEDS: DEXT 5%/0.45% NACL 1000ML 1,000 ML IV SCH ×2 (05:31→21:37)
[2022-04-28] MEDS: INSULIN LISPRO 100 UNITS/ML SUBCUT SCH ×4 (05:31→17:04)
[2022-04-28] MEDS: PROPOFOL 10MG/ML 100ML 100 ML IV PRN (05:32)
[2022-04-28] MEDS: FUROSEMIDE 40MG/4ML VIAL IVP SCH (06:18)
[2022-04-28 07:50] LABS: BG BASE EXCESS 7.6 mmol/L (-2.0-2.0); BG CARBOXYHEMOGLOBIN 0.1 % (0.5-1.5); BG DEOXYHEMOGLOBIN 3.7 % (0.0-5.0); BG HCO3 ACT 30.9 mmol/L (22.0-26.0); BG METHEMOGLOBIN 0.4 % (0.0-1.5); BG OXYGEN SATURATION 96.3 % (92.0-98.5); BG OXYHEMOGLOBIN 95.8 % (94.0-97.0); BG PCO2 37.8 mmHg (35.0-45.0); BG PO2 84.4 mmHg (75.0-100.0); BG SAMPLE SITE RIGHT RADIAL; BG TOTAL HEMOGLOBIN 8.6 g/dL (12.0-18.0); BG VENT MODE VENT - AC
[2022-04-28] MEDS: PANTOPRAZOLE SODIUM 40 MG/VIAL IV SCH (08:15)
[2022-04-28] MEDS: MIDODRINE HCL 5MG TABLET PO SCH ×3 (08:15→17:18)
[2022-04-28] MEDS: THIAMINE HCL 100MG TABLET PO SCH (08:15)
[2022-04-28] MEDS: MULTIVITAMINS,THER W-MINERALS TABLET PO SCH (08:15)
[2022-04-28] MEDS: FOLIC ACID 1MG TABLET PO SCH (08:15)
[2022-04-28] MEDS: CEFEPIME 1,000 MG in DEXTROSE 5% WATER 50 ML IV SCH ×2 (08:19→21:37)
[2022-04-28 09:47] LABS: PLATELET ESTIMATE NORMAL
[2022-04-28 18:13] LABS: HEMATOCRIT 28.1 % (42.0-52.0); HEMOGLOBIN 9.3 g/dL (14.0-18.0)
[2022-04-28 18:21] LABS: INR 1.1; PROTHROMBIN TIME 11.8 sec (9.6-11.0)
[2022-04-29] VITALS (90 sets, daily range): BP systolic 98–138; BP diastolic 62–92
[2022-04-29] MEDS: BLOOD SUGAR DIAGNOSTIC STRIP TEST SCH ×5 (00:54→23:56)
[2022-04-29] MEDS: IPRATROPIUM/ALBUTEROL 0.5-3(2.5)MG/3ML NEB HHN SCH ×5 (01:22→20:31)
[2022-04-29] MEDS: PROPOFOL 10MG/ML 100ML 100 ML IV PRN ×2 (02:35→19:20)
[2022-04-29] MEDS: INSULIN LISPRO 100 UNITS/ML SUBCUT SCH ×5 (05:17→23:56)
[2022-04-29] MEDS: METHYLPREDNISOLONE SOD SUCC 40 MG/ML VIAL IV SCH ×3 (05:30→20:19)
[2022-04-29 05:50] LABS: HEMATOCRIT. 27.8 % (42.0-52.0); MEAN CORPUSCULAR HEMOGLOBIN 27.6 pg (28.0-32.0); MEAN CORPUSCULAR VOLUME 84.8 fL (80.0-94.0); MEAN PLATELET VOLUME 9.9 fl (7.4-10.4); PLATELET 332 x1000/uL (130-400); RED BLOOD CELL COUNT 3.27 mill/uL (4.7-6.1); RED CELL DISTRIBUTION WIDTH 16.4 % (11.6-14.6)
[2022-04-29 05:55] LABS: CHLORIDE 103 mEq/L (98-107)
[2022-04-29 06:00] LABS: PHOSPHORUS 3.7 mg/dL (2.5-4.9)
[2022-04-29] MEDS: ACETYLCYSTEINE 200MG/ML 20% VIAL 10ML INH SCH (06:00)
[2022-04-29] MEDS: PANTOPRAZOLE SODIUM 40 MG/VIAL IV SCH (08:08)
[2022-04-29] MEDS: THIAMINE HCL 100MG TABLET PO SCH (08:08)
[2022-04-29] MEDS: MULTIVITAMINS,THER W-MINERALS TABLET PO SCH (08:08)
[2022-04-29] MEDS: FOLIC ACID 1MG TABLET PO SCH (08:08)
[2022-04-29] MEDS: CEFEPIME 1,000 MG in DEXTROSE 5% WATER 50 ML IV SCH ×2 (08:08→20:19)
[2022-04-29] MEDS: MIDODRINE HCL 5MG TABLET PO SCH ×3 (08:09→17:46)
[2022-04-29 08:30] LABS: BG BASE EXCESS 4.6 mmol/L (-2.0-2.0); BG CARBOXYHEMOGLOBIN 0.3 % (0.5-1.5); BG DEOXYHEMOGLOBIN 3.3 % (0.0-5.0); BG FRACTION INSPIRED OXYGEN 40; BG HCO3 ACT 27.8 mmol/L (22.0-26.0); BG METHEMOGLOBIN 0.3 % (0.0-1.5); BG OXYGEN SATURATION 96.7 % (92.0-98.5); BG OXYHEMOGLOBIN 96.1 % (94.0-97.0); BG PCO2 35.8 mmHg (35.0-45.0); BG PH 7.508 (7.350-7.450); BG PO2 92.1 mmHg (75.0-100.0); BG SAMPLE SITE LEFT RADIAL; BG TOTAL HEMOGLOBIN 9.9 g/dL (12.0-18.0); BG VENT MODE VENT - AC
[2022-04-29] MEDS ORDERED: KCL 20MEQ/100ML PREMIX 100 ML IV NR ×2 (09:00→11:30)
[2022-04-29 10:08] LABS: PLATELET ESTIMATE NORMAL
[2022-04-29] MEDS: FUROSEMIDE 40MG/4ML VIAL IVP SCH ×2 (10:14→17:45)
[2022-04-29] MEDS: DEXT 5%/0.45% NACL 1000ML 1,000 ML IV SCH (12:23)
[2022-04-30] VITALS (91 sets, daily range): BP systolic 96–143; BP diastolic 61–89
[2022-04-30] MEDS: IPRATROPIUM/ALBUTEROL 0.5-3(2.5)MG/3ML NEB HHN SCH ×5 (00:13→16:56)
[2022-04-30] MEDS: ACETYLCYSTEINE 200MG/ML 20% VIAL 10ML INH SCH ×3 (00:16→16:56)
[2022-04-30] MEDS: METHYLPREDNISOLONE SOD SUCC 40 MG/ML VIAL IV SCH ×3 (04:33→20:09)
[2022-04-30] MEDS: DEXT 5%/0.45% NACL 1000ML 1,000 ML IV SCH (05:15)
[2022-04-30] MEDS: INSULIN LISPRO 100 UNITS/ML SUBCUT SCH ×3 (05:20→18:00)
[2022-04-30] MEDS: BLOOD SUGAR DIAGNOSTIC STRIP TEST SCH ×3 (05:20→18:11)
[2022-04-30 05:35] LABS: HEMATOCRIT. 26.9 % (42.0-52.0); HEMOGLOBIN. 8.9 g/dL (14.0-18.0); MEAN CORPUSCULAR HEMOGLOBIN 28.2 pg (28.0-32.0); MEAN CORPUSCULAR VOLUME 85.2 fL (80.0-94.0); MEAN PLATELET VOLUME 9.6 fl (7.4-10.4); PLATELET 387 x1000/uL (130-400); RED BLOOD CELL COUNT 3.16 mill/uL (4.7-6.1); RED CELL DISTRIBUTION WIDTH 16.5 % (11.6-14.6)
[2022-04-30 05:52] LABS: CHLORIDE 103 mEq/L (98-107)
[2022-04-30 05:57] LABS: PHOSPHORUS 3.1 mg/dL (2.5-4.9)
[2022-04-30 07:38] LABS: BG BASE EXCESS 6.9 mmol/L (-2.0-2.0); BG CARBOXYHEMOGLOBIN 0.3 % (0.5-1.5); BG DEOXYHEMOGLOBIN 2.6 % (0.0-5.0); BG HCO3 ACT 30.6 mmol/L (22.0-26.0); BG METHEMOGLOBIN 0.3 % (0.0-1.5); BG OXYGEN SATURATION 97.4 % (92.0-98.5); BG OXYHEMOGLOBIN 96.8 % (94.0-97.0); BG PH 7.501 (7.350-7.450); BG PO2 102.3 mmHg (75.0-100.0); BG SAMPLE SITE RIGHT BRACHIAL; BG TOTAL HEMOGLOBIN 9.7 g/dL (12.0-18.0); BG VENT MODE VENT - AC
[2022-04-30] MEDS: PANTOPRAZOLE SODIUM 40 MG/VIAL IV SCH (09:15)
[2022-04-30] MEDS: FUROSEMIDE 40MG/4ML VIAL IVP SCH ×2 (09:15→17:56)
[2022-04-30] MEDS: MIDODRINE HCL 5MG TABLET PO SCH ×3 (09:16→17:56)
[2022-04-30] MEDS: FOLIC ACID 1MG TABLET PO SCH (09:16)
[2022-04-30] MEDS: CEFEPIME 1,000 MG in DEXTROSE 5% WATER 50 ML IV SCH ×2 (09:16→20:09)
[2022-04-30] MEDS: THIAMINE HCL 100MG TABLET PO SCH (09:28)
[2022-04-30] MEDS: MULTIVITAMINS,THER W-MINERALS TABLET PO SCH (09:28)
[2022-04-30] MEDS ORDERED: ACETAZOLAMIDE SODIUM 500MG/VIAL IV NR (09:30)
[2022-04-30] MEDS ORDERED: POTASSIUM CHLORIDE 20MEQ/PACKET PO NR (09:30)
[2022-04-30 09:44] LABS: PLATELET ESTIMATE NORMAL
[2022-04-30] MEDS: PROPOFOL 10MG/ML 100ML 100 ML IV PRN (12:35)
[2022-04-30] MEDS ORDERED: MORPHINE SULFATE 2 MG/ML CPJ (NOT FOR IM USE) IV PRN (16:45)
[2022-04-30] MEDS ORDERED: LORAZEPAM 2MG/ML CPJ IV PRN (16:45)
[2022-05-01] VITALS (87 sets, daily range): BP systolic 92–144; BP diastolic 47–115
[2022-05-01] MEDS: BLOOD SUGAR DIAGNOSTIC STRIP TEST SCH ×5 (00:40→23:46)
[2022-05-01] MEDS: PROPOFOL 10MG/ML 100ML 100 ML IV PRN (05:08)
[2022-05-01] MEDS: METHYLPREDNISOLONE SOD SUCC 40 MG/ML VIAL IV SCH ×3 (05:08→20:34)
[2022-05-01 05:56] LABS: HEMATOCRIT. 28.7 % (42.0-52.0); HEMOGLOBIN. 9.3 g/dL (14.0-18.0); MEAN CORPUSCULAR HEMOGLOBIN 28.7 pg (28.0-32.0); MEAN PLATELET VOLUME 10.4 fl (7.4-10.4); PLATELET 413 x1000/uL (130-400); RED BLOOD CELL COUNT 3.26 mill/uL (4.7-6.1); RED CELL DISTRIBUTION WIDTH 16.3 % (11.6-14.6)
[2022-05-01] MEDS: INSULIN LISPRO 100 UNITS/ML SUBCUT SCH ×5 (06:00→23:46)
[2022-05-01 06:13] LABS: CHLORIDE 104 mEq/L (98-107)
[2022-05-01] MEDS: FUROSEMIDE 40MG/4ML VIAL IVP SCH ×2 (08:19→16:04)
[2022-05-01] MEDS: MULTIVITAMINS,THER W-MINERALS TABLET PO SCH (08:19)
[2022-05-01] MEDS: MIDODRINE HCL 5MG TABLET PO SCH ×3 (08:19→16:04)
[2022-05-01] MEDS: FOLIC ACID 1MG TABLET PO SCH (08:19)
[2022-05-01] MEDS: PANTOPRAZOLE SODIUM 40 MG/VIAL IV SCH (08:19)
[2022-05-01] MEDS: THIAMINE HCL 100MG TABLET PO SCH (08:19)
[2022-05-01 09:03] LABS: BG BASE EXCESS 8.8 mmol/L (-2.0-2.0); BG CARBOXYHEMOGLOBIN 0.3 % (0.5-1.5); BG DEOXYHEMOGLOBIN 4.4 % (0.0-5.0); BG FRACTION INSPIRED OXYGEN 40; BG HCO3 ACT 33.3 mmol/L (22.0-26.0); BG METHEMOGLOBIN 0.3 % (0.0-1.5); BG OXYGEN SATURATION 95.6 % (92.0-98.5); BG PH 7.478 (7.350-7.450); BG PO2 91.3 mmHg (75.0-100.0); BG SAMPLE SITE RIGHT RADIAL; BG TOTAL HEMOGLOBIN 10.1 g/dL (12.0-18.0); BG VENT MODE VENT - AC
[2022-05-01 09:11] LABS: PLATELET ESTIMATE INCREASED
[2022-05-01] MEDS: CEFEPIME 1,000 MG in DEXTROSE 5% WATER 50 ML IV SCH ×2 (09:19→21:33)
[2022-05-01] MEDS ORDERED: ACETAZOLAMIDE SODIUM 500MG/VIAL IV NR (10:00)
[2022-05-02] VITALS (48 sets, daily range): BP systolic 119–157; BP diastolic 27–98
[2022-05-02] MEDS: BLOOD SUGAR DIAGNOSTIC STRIP TEST SCH ×4 (05:17→23:08)
[2022-05-02] MEDS: INSULIN LISPRO 100 UNITS/ML SUBCUT SCH ×4 (05:18→23:08)
[2022-05-02 05:51] LABS: BASOPHILS % 0.1 % (0.0-2.0); HEMATOCRIT. 28.3 % (42.0-52.0); HEMOGLOBIN. 9.1 g/dL (14.0-18.0); LYMPHOCYTES % 4.8 % (20.0-50.0); MEAN CORPUSCULAR HEMOGLOBIN 27.7 pg (28.0-32.0); MEAN CORPUSCULAR VOLUME 85.8 fL (80.0-94.0); MEAN PLATELET VOLUME 9.7 fl (7.4-10.4); MONOCYTES % 5.4 % (2.0-8.0); NEUTROPHILS % 89.7 % (40.0-76.0); PLATELET 440 x1000/uL (130-400); RED BLOOD CELL COUNT 3.31 mill/uL (4.7-6.1); RED CELL DISTRIBUTION WIDTH 16.9 % (11.6-14.6)
[2022-05-02 06:03] LABS: CHLORIDE 104 mEq/L (98-107)
[2022-05-02 08:22] LABS: BG CARBOXYHEMOGLOBIN 0.6 % (0.5-1.5); BG DEOXYHEMOGLOBIN 1.7 % (0.0-5.0); BG FRACTION INSPIRED OXYGEN 40; BG HCO3 ACT 32.2 mmol/L (22.0-26.0); BG METHEMOGLOBIN 0.3 % (0.0-1.5); BG OXYGEN SATURATION 98.3 % (92.0-98.5); BG OXYHEMOGLOBIN 97.4 % (94.0-97.0); BG PCO2 49.2 mmHg (35.0-45.0); BG PH 7.434 (7.350-7.450); BG PO2 116.8 mmHg (75.0-100.0); BG SAMPLE SITE RIGHT BRACHIAL; BG TOTAL HEMOGLOBIN 10.6 g/dL (12.0-18.0); BG TOTAL RESPIRATORY RATE 19 b/min; BG VENT MODE VENT - CPAP
[2022-05-02] MEDS: METHYLPREDNISOLONE SOD SUCC 40 MG/ML VIAL IV SCH (08:38)
[2022-05-02] MEDS: CEFEPIME 1,000 MG in DEXTROSE 5% WATER 50 ML IV SCH (08:38)
[2022-05-02] MEDS: FUROSEMIDE 40MG/4ML VIAL IVP SCH ×2 (08:38→17:40)
[2022-05-02] MEDS: MIDODRINE HCL 5MG TABLET PO SCH ×3 (08:38→17:00)
[2022-05-02] MEDS: PANTOPRAZOLE SODIUM 40 MG/VIAL IV SCH (08:38)
[2022-05-02] MEDS: MULTIVITAMINS,THER W-MINERALS TABLET PO SCH (08:39)
[2022-05-02] MEDS: POTASSIUM CHLORIDE 20MEQ/PACKET PO SCH (08:39)
[2022-05-02] MEDS: FOLIC ACID 1MG TABLET PO SCH (08:49)
[2022-05-02] MEDS: THIAMINE HCL 100MG TABLET PO SCH (08:49)
[2022-05-02] MEDS ORDERED: NALOXONE HCL 0.4MG/ML VIAL IV PRN (10:00)
[2022-05-02] MEDS ORDERED: KCL 20MEQ/100ML PREMIX 100 ML IV SCH (10:00)
[2022-05-02 16:53] LABS: PHOSPHORUS 3.4 mg/dL (2.5-4.9)
[2022-05-02] MEDS: MORPHINE SULFATE 2 MG/ML CPJ (NOT FOR IM USE) IV PRN (21:04)
[2022-05-03] VITALS (52 sets, daily range): BP systolic 98–175; BP diastolic 26–99
[2022-05-03] MEDS: MORPHINE SULFATE 2 MG/ML CPJ (NOT FOR IM USE) IV PRN (02:35)
[2022-05-03 05:21] LABS: HEMATOCRIT. 32.7 % (42.0-52.0); HEMOGLOBIN. 10.8 g/dL (14.0-18.0); MEAN CORPUSCULAR HEMOGLOBIN 28.5 pg (28.0-32.0); MEAN CORPUSCULAR VOLUME 86.3 fL (80.0-94.0); MEAN PLATELET VOLUME 10.2 fl (7.4-10.4); PLATELET 443 x1000/uL (130-400); RED BLOOD CELL COUNT 3.79 mill/uL (4.7-6.1); RED CELL DISTRIBUTION WIDTH 16.8 % (11.6-14.6)
[2022-05-03] MEDS: INSULIN LISPRO 100 UNITS/ML SUBCUT SCH ×3 (06:00→17:26)
[2022-05-03 06:03] LABS: CHLORIDE 102 mEq/L (98-107)
[2022-05-03 06:16] LABS: PHOSPHORUS 2.9 mg/dL (2.5-4.9)
[2022-05-03] MEDS: BLOOD SUGAR DIAGNOSTIC STRIP TEST SCH ×3 (06:16→17:26)
[2022-05-03 07:51] LABS: PLATELET ESTIMATE INCREASED
[2022-05-03 08:19] LABS: BG BASE EXCESS 10.8 mmol/L (-2.0-2.0); BG CARBOXYHEMOGLOBIN 0.3 % (0.5-1.5); BG DEOXYHEMOGLOBIN 9.6 % (0.0-5.0); BG FRACTION INSPIRED OXYGEN 80; BG HCO3 ACT 33.9 mmol/L (22.0-26.0); BG METHEMOGLOBIN 0.3 % (0.0-1.5); BG OXYGEN SATURATION 90.3 % (92.0-98.5); BG OXYHEMOGLOBIN 89.8 % (94.0-97.0); BG PCO2 39.4 mmHg (35.0-45.0); BG PH 7.553 (7.350-7.450); BG PO2 53.9 mmHg (75.0-100.0); BG SAMPLE SITE LEFT RADIAL; BG TOTAL HEMOGLOBIN 10.9 g/dL (12.0-18.0); BG VENT MODE COOL AEROSOL
[2022-05-03] MEDS: MULTIVITAMINS,THER W-MINERALS TABLET PO SCH (08:37)
[2022-05-03] MEDS: POTASSIUM CHLORIDE 20MEQ/PACKET PO SCH (08:37)
[2022-05-03] MEDS: THIAMINE HCL 100MG TABLET PO SCH (08:37)
[2022-05-03] MEDS: PANTOPRAZOLE SODIUM 40 MG/VIAL IV SCH (08:37)
[2022-05-03] MEDS: MIDODRINE HCL 5MG TABLET PO SCH ×3 (08:37→17:11)
[2022-05-03] MEDS: FUROSEMIDE 40MG/4ML VIAL IVP SCH ×2 (08:37→17:09)
[2022-05-03] MEDS: FOLIC ACID 1MG TABLET PO SCH (08:38)
[2022-05-03] MEDS ORDERED: METHYLPREDNISOLONE SOD SUCC 40 MG/ML VIAL IV SCH (09:00)
[2022-05-04] VITALS (55 sets, daily range): BP systolic 101–168; BP diastolic 50–121
[2022-05-04 05:25] LABS: BASOPHILS % 0.1 % (0.0-2.0); EOSINOPHILS % 0.4 % (0.0-5.0); HEMATOCRIT. 27.5 % (42.0-52.0); HEMOGLOBIN. 9.2 g/dL (14.0-18.0); LYMPHOCYTES % 7.3 % (20.0-50.0); MEAN CORPUSCULAR HEMOGLOBIN 28.6 pg (28.0-32.0); MEAN CORPUSCULAR VOLUME 85.5 fL (80.0-94.0); MEAN PLATELET VOLUME 9.1 fl (7.4-10.4); MONOCYTES % 8.4 % (2.0-8.0); NEUTROPHILS % 83.8 % (40.0-76.0); PLATELET 393 x1000/uL (130-400); RED BLOOD CELL COUNT 3.22 mill/uL (4.7-6.1); RED CELL DISTRIBUTION WIDTH 16.7 % (11.6-14.6)
[2022-05-04 05:34] LABS: CHLORIDE 102 mEq/L (98-107)
[2022-05-04 05:42] LABS: PHOSPHORUS 3.1 mg/dL (2.5-4.9)
[2022-05-04] MEDS: MORPHINE SULFATE 2 MG/ML CPJ (NOT FOR IM USE) IV PRN (09:13)
[2022-05-04] MEDS: FUROSEMIDE 40MG/4ML VIAL IVP SCH (09:14)
[2022-05-04] MEDS: METHYLPREDNISOLONE SOD SUCC 40 MG/ML VIAL IV SCH (09:14)
[2022-05-04] MEDS: THIAMINE HCL 100MG TABLET PO SCH (09:14)
[2022-05-04] MEDS: MULTIVITAMINS,THER W-MINERALS TABLET PO SCH ×2 (09:14→09:38)
[2022-05-04] MEDS: MIDODRINE HCL 5MG TABLET PO SCH ×3 (09:14→17:00)
[2022-05-04] MEDS: PANTOPRAZOLE SODIUM 40 MG/VIAL IV SCH (09:15)
[2022-05-04] MEDS: POTASSIUM CHLORIDE 20MEQ/PACKET PO SCH (09:15)
[2022-05-04] MEDS: FOLIC ACID 1MG TABLET PO SCH (09:39)
[2022-05-04 10:14] LABS: BG BASE EXCESS 9.2 mmol/L (-2.0-2.0); BG CARBOXYHEMOGLOBIN 0.2 % (0.5-1.5); BG DEOXYHEMOGLOBIN 4.6 % (0.0-5.0); BG FRACTION INSPIRED OXYGEN 80; BG HCO3 ACT 33.1 mmol/L (22.0-26.0); BG METHEMOGLOBIN 0.3 % (0.0-1.5); BG OXYGEN SATURATION 95.4 % (92.0-98.5); BG OXYHEMOGLOBIN 94.9 % (94.0-97.0); BG PCO2 42.6 mmHg (35.0-45.0); BG PH 7.508 (7.350-7.450); BG PO2 77.6 mmHg (75.0-100.0); BG SAMPLE SITE RIGHT RADIAL; BG TOTAL HEMOGLOBIN 10.7 g/dL (12.0-18.0); BG VENT MODE HIGH FLOW
[2022-05-04] MEDS ORDERED: LORAZEPAM 2MG/ML CPJ IV PRN (10:45)
[2022-05-04] MEDS ORDERED: ACETAZOLAMIDE SODIUM 500MG/VIAL IV NR (11:30)
[2022-05-04] MEDS: INSULIN LISPRO 100 UNITS/ML SUBCUT SCH ×3 (12:00→18:00)
[2022-05-04] MEDS: BLOOD SUGAR DIAGNOSTIC STRIP TEST SCH ×3 (12:29→18:39)
[2022-05-04 15:06] LABS: BG BASE EXCESS 14.6 mmol/L (-2.0-2.0); BG CARBOXYHEMOGLOBIN 0.2 % (0.5-1.5); BG DEOXYHEMOGLOBIN 5.3 % (0.0-5.0); BG FRACTION INSPIRED OXYGEN 100; BG HCO3 ACT 39.3 mmol/L (22.0-26.0); BG METHEMOGLOBIN 0.2 % (0.0-1.5); BG OXYGEN SATURATION 94.7 % (92.0-98.5); BG OXYHEMOGLOBIN 94.3 % (94.0-97.0); BG PCO2 49.4 mmHg (35.0-45.0); BG PH 7.518 (7.350-7.450); BG PO2 71.4 mmHg (75.0-100.0); BG SAMPLE SITE RIGHT RADIAL; BG TOTAL HEMOGLOBIN 11.1 g/dL (12.0-18.0); BG VENT MODE VENT - AC
[2022-05-04] MEDS ORDERED: ETOMIDATE 2MG/ML 10ML VIAL IV ONE (16:29)
[2022-05-04] MEDS ORDERED: VECURONIUM BROMIDE 10 MG/VIAL IV ONE (16:29)
[2022-05-04] MEDS ORDERED: MORPHINE SULFATE 2 MG/ML CPJ (NOT FOR IM USE) IV PRN (16:45)
[2022-05-05] VITALS (47 sets, daily range): BP systolic 107–160; BP diastolic 56–92
[2022-05-05 05:37] LABS: HEMATOCRIT. 32.7 % (42.0-52.0); HEMOGLOBIN. 10.5 g/dL (14.0-18.0); MEAN CORPUSCULAR HEMOGLOBIN 27.8 pg (28.0-32.0); MEAN CORPUSCULAR VOLUME 86.3 fL (80.0-94.0); MEAN PLATELET VOLUME 9.7 fl (7.4-10.4); PLATELET 411 x1000/uL (130-400); RED BLOOD CELL COUNT 3.79 mill/uL (4.7-6.1); RED CELL DISTRIBUTION WIDTH 16.8 % (11.6-14.6)
[2022-05-05 05:40] LABS: CHLORIDE 103 mEq/L (98-107)
[2022-05-05] MEDS: INSULIN LISPRO 100 UNITS/ML SUBCUT SCH ×4 (06:00→18:00)
[2022-05-05] MEDS: BLOOD SUGAR DIAGNOSTIC STRIP TEST SCH ×4 (06:00→18:00)
[2022-05-05] MEDS: MIDODRINE HCL 5MG TABLET PO SCH ×3 (09:00→17:26)
[2022-05-05 09:09] LABS: BG CARBOXYHEMOGLOBIN 0.1 % (0.5-1.5); BG FRACTION INSPIRED OXYGEN 70; BG HCO3 ACT 27.6 mmol/L (22.0-26.0); BG METHEMOGLOBIN 0.5 % (0.0-1.5); BG OXYHEMOGLOBIN 98.4 % (94.0-97.0); BG PCO2 42.4 mmHg (35.0-45.0); BG PH 7.431 (7.350-7.450); BG PO2 170.1 mmHg (75.0-100.0); BG SAMPLE SITE RIGHT RADIAL; BG TOTAL HEMOGLOBIN 10.6 g/dL (12.0-18.0); BG VENT MODE VENT - AC
[2022-05-05 09:20] LABS: PLATELET ESTIMATE SLIGHTLY INCREASED
[2022-05-05] MEDS: POTASSIUM CHLORIDE 20MEQ/PACKET PO SCH (10:16)
[2022-05-05] MEDS: FUROSEMIDE 40MG/4ML VIAL IVP SCH (10:16)
[2022-05-05] MEDS: FOLIC ACID 1MG TABLET PO SCH (10:17)
[2022-05-05] MEDS: THIAMINE HCL 100MG TABLET PO SCH (10:17)
[2022-05-05] MEDS: MULTIVITAMINS,THER W-MINERALS TABLET PO SCH (10:17)
[2022-05-05] MEDS: PANTOPRAZOLE SODIUM 40 MG/VIAL IV SCH (10:17)
[2022-05-05] MEDS: METHYLPREDNISOLONE SOD SUCC 40 MG/ML VIAL IV SCH (10:17)
[2022-05-05 15:39] LABS: INR 1.1; PROTHROMBIN TIME 11.5 sec (9.6-11.0)
[2022-05-06] VITALS (52 sets, daily range): BP systolic 119–168; BP diastolic 38–133
[2022-05-06] MEDS: INSULIN LISPRO 100 UNITS/ML SUBCUT SCH ×4 (06:00→17:44)
[2022-05-06] MEDS: BLOOD SUGAR DIAGNOSTIC STRIP TEST SCH ×4 (06:20→17:44)
[2022-05-06 06:23] LABS: HEMATOCRIT. 32.6 % (42.0-52.0); HEMOGLOBIN. 10.3 g/dL (14.0-18.0); MEAN CORPUSCULAR HEMOGLOBIN 27.6 pg (28.0-32.0); MEAN CORPUSCULAR VOLUME 86.8 fL (80.0-94.0); MEAN PLATELET VOLUME 9.6 fl (7.4-10.4); PLATELET 372 x1000/uL (130-400); RED BLOOD CELL COUNT 3.75 mill/uL (4.7-6.1); RED CELL DISTRIBUTION WIDTH 16.7 % (11.6-14.6)
[2022-05-06 06:39] LABS: CHLORIDE 105 mEq/L (98-107)
[2022-05-06 06:43] LABS: PHOSPHORUS 3.2 mg/dL (2.5-4.9)
[2022-05-06 08:54] LABS: BG BASE EXCESS 5.4 mmol/L (-2.0-2.0); BG CARBOXYHEMOGLOBIN 0.3 % (0.5-1.5); BG DEOXYHEMOGLOBIN 2.8 % (0.0-5.0); BG FRACTION INSPIRED OXYGEN 40; BG HCO3 ACT 29.2 mmol/L (22.0-26.0); BG METHEMOGLOBIN 0.3 % (0.0-1.5); BG OXYGEN SATURATION 97.2 % (92.0-98.5); BG OXYHEMOGLOBIN 96.6 % (94.0-97.0); BG PCO2 39.5 mmHg (35.0-45.0); BG PH 7.486 (7.350-7.450); BG PO2 89.5 mmHg (75.0-100.0); BG SAMPLE SITE RIGHT RADIAL; BG TOTAL RESPIRATORY RATE 28 b/min; BG VENT MODE VENT - AC
[2022-05-06] MEDS: THIAMINE HCL 100MG TABLET PO SCH (09:10)
[2022-05-06] MEDS: FUROSEMIDE 40MG/4ML VIAL IVP SCH (09:10)
[2022-05-06] MEDS: PANTOPRAZOLE SODIUM 40 MG/VIAL IV SCH (09:10)
[2022-05-06] MEDS: POTASSIUM CHLORIDE 20MEQ/PACKET PO SCH (09:10)
[2022-05-06] MEDS: FOLIC ACID 1MG TABLET PO SCH (09:11)
[2022-05-06] MEDS: MULTIVITAMINS,THER W-MINERALS TABLET PO SCH (09:11)
[2022-05-06] MEDS: MIDODRINE HCL 5MG TABLET PO SCH ×2 (09:11→13:39)
[2022-05-06 10:49] LABS: PLATELET ESTIMATE NORMAL
[2022-05-06] MEDS: LORAZEPAM 2MG/ML CPJ IV PRN (20:46)
[2022-05-07] VITALS (35 sets, daily range): BP systolic 122–162; BP diastolic 75–106
[2022-05-07] MEDS: BLOOD SUGAR DIAGNOSTIC STRIP TEST SCH ×4 (01:13→18:00)
[2022-05-07] MEDS: INSULIN LISPRO 100 UNITS/ML SUBCUT SCH ×4 (01:13→18:00)
[2022-05-07] MEDS: LORAZEPAM 2MG/ML CPJ IV PRN (01:16)
[2022-05-07 05:33] LABS: HEMATOCRIT. 32.8 % (42.0-52.0); HEMOGLOBIN. 10.5 g/dL (14.0-18.0); MEAN CORPUSCULAR HEMOGLOBIN 27.9 pg (28.0-32.0); MEAN CORPUSCULAR VOLUME 87.2 fL (80.0-94.0); MEAN PLATELET VOLUME 10.1 fl (7.4-10.4); PLATELET 353 x1000/uL (130-400); RED BLOOD CELL COUNT 3.76 mill/uL (4.7-6.1)
[2022-05-07 05:47] LABS: CHLORIDE 109 mEq/L (98-107)
[2022-05-07 08:07] LABS: BG BASE EXCESS 3.1 mmol/L (-2.0-2.0); BG CARBOXYHEMOGLOBIN 0.5 % (0.5-1.5); BG HCO3 ACT 27.4 mmol/L (22.0-26.0); BG METHEMOGLOBIN 0.3 % (0.0-1.5); BG OXYHEMOGLOBIN 96.2 % (94.0-97.0); BG PH 7.443 (7.350-7.450); BG PO2 92.2 mmHg (75.0-100.0); BG SAMPLE SITE RIGHT BRACHIAL; BG TOTAL HEMOGLOBIN 11.5 g/dL (12.0-18.0); BG VENT MODE VENT - AC
[2022-05-07] MEDS: THIAMINE HCL 100MG TABLET PO SCH (09:00)
[2022-05-07] MEDS ORDERED: DEXT 5%/0.45% NACL 1000ML 1,000 ML IV ONE (09:45)
[2022-05-07] MEDS: PANTOPRAZOLE SODIUM 40 MG/VIAL IV SCH (10:29)
[2022-05-07] MEDS: MIDODRINE HCL 5MG TABLET PO SCH ×3 (10:31→17:00)
[2022-05-07] MEDS: FUROSEMIDE 40MG/4ML VIAL IVP SCH (10:32)
[2022-05-07] MEDS: POTASSIUM CHLORIDE 20MEQ/PACKET PO SCH (10:32)
[2022-05-07 13:33] LABS: PLATELET ESTIMATE NORMAL
[2022-05-07] MEDS ORDERED: ROCURONIUM BROMIDE 10MG/ML VIAL 5ML IV ONE (14:47)
[2022-05-07] MEDS ORDERED: MIDAZOLAM HCL 2 MG/2 ML VIAL ONE (15:10)
[2022-05-07] MEDS ORDERED: PHENYLEPHRINE HCL 10 MG/ML 1ML (IV VIAL) IV ONE (15:24)
[2022-05-07] MEDS ORDERED: FENTANYL CITRATE/PF 50MCG/ML 2ML VIAL IV PRN (15:45)
[2022-05-08] VITALS (44 sets, daily range): BP systolic 99–167; BP diastolic 29–109
[2022-05-08] MEDS: BLOOD SUGAR DIAGNOSTIC STRIP TEST SCH ×4 (00:46→18:58)
[2022-05-08] MEDS: INSULIN LISPRO 100 UNITS/ML SUBCUT SCH ×4 (00:46→18:00)
[2022-05-08 04:34] LABS: HEMATOCRIT. 29.6 % (42.0-52.0); HEMOGLOBIN. 9.7 g/dL (14.0-18.0); MEAN PLATELET VOLUME 9.7 fl (7.4-10.4); PLATELET 348 x1000/uL (130-400); RED BLOOD CELL COUNT 3.45 mill/uL (4.7-6.1); RED CELL DISTRIBUTION WIDTH 16.5 % (11.6-14.6)
[2022-05-08 04:47] LABS: PROTHROMBIN TIME 11.2 sec (9.6-11.0)
[2022-05-08 05:14] LABS: CHLORIDE 107 mEq/L (98-107)
[2022-05-08 05:32] LABS: PLATELET ESTIMATE NORMAL
[2022-05-08 08:10] LABS: BG BASE EXCESS 3.2 mmol/L (-2.0-2.0); BG CARBOXYHEMOGLOBIN 0.3 % (0.5-1.5); BG DEOXYHEMOGLOBIN 2.9 % (0.0-5.0); BG FRACTION INSPIRED OXYGEN 40; BG HCO3 ACT 26.4 mmol/L (22.0-26.0); BG METHEMOGLOBIN 0.1 % (0.0-1.5); BG OXYGEN SATURATION 97.1 % (92.0-98.5); BG OXYHEMOGLOBIN 96.7 % (94.0-97.0); BG PCO2 35.1 mmHg (35.0-45.0); BG PH 7.494 (7.350-7.450); BG PO2 88.6 mmHg (75.0-100.0); BG SAMPLE SITE RIGHT RADIAL; BG TOTAL HEMOGLOBIN 10.7 g/dL (12.0-18.0); BG VENT MODE VENT - AC
[2022-05-08] MEDS: MIDODRINE HCL 5MG TABLET PO SCH ×3 (09:00→17:00)
[2022-05-08] MEDS: FUROSEMIDE 40MG/4ML VIAL IVP SCH (09:55)
[2022-05-08] MEDS: POTASSIUM CHLORIDE 20MEQ/PACKET PO SCH (09:55)
[2022-05-08] MEDS: PANTOPRAZOLE SODIUM 40 MG/VIAL IV SCH (09:55)
[2022-05-08] MEDS: LORAZEPAM 2MG/ML CPJ IV PRN (17:10)
[2022-05-08] MEDS ORDERED: PROPOFOL 10MG/ML 100ML 100 ML IV PRN (19:45)
[2022-05-08] MEDS ORDERED: LORAZEPAM 2MG/ML CPJ IV NR (19:45)
[2022-05-08] MEDS: ACETAMINOPHEN 650MG/20.3ML UDC PO PRN (20:04)
[2022-05-09] VITALS (52 sets, daily range): BP systolic 109–154; BP diastolic 63–102
[2022-05-09] MEDS: ACETAMINOPHEN 650MG/20.3ML UDC PO PRN ×2 (01:17→08:04)
[2022-05-09] MEDS: LORAZEPAM 2MG/ML CPJ IV PRN ×2 (01:55→13:03)
[2022-05-09 06:00] LABS: HEMATOCRIT. 30.6 % (42.0-52.0); HEMOGLOBIN. 10.1 g/dL (14.0-18.0); MEAN CORPUSCULAR HEMOGLOBIN 28.4 pg (28.0-32.0); MEAN CORPUSCULAR VOLUME 85.9 fL (80.0-94.0); MEAN PLATELET VOLUME 10.1 fl (7.4-10.4); PLATELET 386 x1000/uL (130-400); RED BLOOD CELL COUNT 3.56 mill/uL (4.7-6.1); RED CELL DISTRIBUTION WIDTH 16.6 % (11.6-14.6)
[2022-05-09] MEDS: BLOOD SUGAR DIAGNOSTIC STRIP TEST SCH ×4 (06:00→17:49)
[2022-05-09] MEDS: INSULIN LISPRO 100 UNITS/ML SUBCUT SCH ×4 (06:00→17:49)
[2022-05-09 06:05] LABS: CHLORIDE 105 mEq/L (98-107)
[2022-05-09 06:07] LABS: INR 1.1; PROTHROMBIN TIME 12.1 sec (9.6-11.0)
[2022-05-09 07:44] LABS: BG BASE EXCESS 2.1 mmol/L (-2.0-2.0); BG CARBOXYHEMOGLOBIN 0.3 % (0.5-1.5); BG DEOXYHEMOGLOBIN 5.3 % (0.0-5.0); BG HCO3 ACT 24.4 mmol/L (22.0-26.0); BG METHEMOGLOBIN 0.2 % (0.0-1.5); BG OXYGEN SATURATION 94.7 % (92.0-98.5); BG OXYHEMOGLOBIN 94.2 % (94.0-97.0); BG PCO2 30.7 mmHg (35.0-45.0); BG PH 7.519 (7.350-7.450); BG PO2 67.9 mmHg (75.0-100.0); BG SAMPLE SITE RIGHT BRACHIAL; BG TOTAL HEMOGLOBIN 11.3 g/dL (12.0-18.0); BG VENT MODE VENT - AC
[2022-05-09] MEDS: PANTOPRAZOLE SODIUM 40 MG/VIAL IV SCH (08:01)
[2022-05-09] MEDS: MIDODRINE HCL 5MG TABLET PO SCH ×3 (08:02→16:51)
[2022-05-09] MEDS: FUROSEMIDE 40MG/4ML VIAL IVP SCH (08:02)
[2022-05-09] MEDS: POTASSIUM CHLORIDE 20MEQ/PACKET PO SCH (08:03)
[2022-05-09 08:21] LABS: PLATELET ESTIMATE NORMAL
[2022-05-09 12:00] LABS: CLARITY URINE CLEAR (CLEAR); COLOR URINE YELLOW (YELLOW); KETONES URINE NEGATIVE (NEGATIVE); LEUKOCYTE ESTERASE URINE NEGATIVE (NEGATIVE); NITRITE URINE NEGATIVE (NEGATIVE); OCCULT BLOOD URINE 2+ (NEGATIVE); PROTEIN URINE NEGATIVE (NEGATIVE); SPECIFIC GRAVITY URINE 1.011 (1.005-1.030); UROBILINOGEN URINE 0.2 E.U./dL (0.2-1.0)
[2022-05-09] MEDS ORDERED: IPRATROPIUM BROMIDE (0.02%) 0.5MG/2.5ML NEB HHN SCH (13:30)
[2022-05-09] MEDS ORDERED: NALOXONE HCL 0.4MG/ML VIAL IV PRN (13:30)
[2022-05-09] MEDS ORDERED: IPRATROPIUM/ALBUTEROL 0.5-3(2.5)MG/3ML NEB ONE (14:25)
[2022-05-09] MEDS: IPRATROPIUM/ALBUTEROL 0.5-3(2.5)MG/3ML NEB HHN SCH ×2 (14:38→20:19)
[2022-05-09] MEDS: MEROPENEM-0.9% SODIUM CHLORIDE 50 ML IV SCH ×2 (14:57→22:23)
[2022-05-09] MEDS: MORPHINE SULFATE 2 MG/ML CPJ (NOT FOR IM USE) IV PRN (17:51)
[2022-05-09] MEDS ORDERED: ALBUTEROL (0.083%) 2.5MG/3ML NEB HHN SCH (18:00)
[2022-05-10] VITALS (59 sets, daily range): BP systolic 103–163; BP diastolic 57–108
[2022-05-10] MEDS: IPRATROPIUM/ALBUTEROL 0.5-3(2.5)MG/3ML NEB HHN SCH ×4 (02:10→20:39)
[2022-05-10] MEDS: DEXT 5%/0.9% NACL 1,000 ML IV SCH ×2 (05:05→17:19)
[2022-05-10] MEDS: MEROPENEM-0.9% SODIUM CHLORIDE 50 ML IV SCH ×3 (05:05→22:14)
[2022-05-10] MEDS: BLOOD SUGAR DIAGNOSTIC STRIP TEST SCH ×5 (05:33→23:24)
[2022-05-10] MEDS: INSULIN LISPRO 100 UNITS/ML SUBCUT SCH ×5 (05:33→23:24)
[2022-05-10 05:54] LABS: CHLORIDE 106 mEq/L (98-107)
[2022-05-10 05:56] LABS: HEMATOCRIT. 29.7 % (42.0-52.0); HEMOGLOBIN. 9.4 g/dL (14.0-18.0); MEAN CORPUSCULAR HEMOGLOBIN 27.8 pg (28.0-32.0); MEAN CORPUSCULAR VOLUME 87.5 fL (80.0-94.0); MEAN PLATELET VOLUME 10.6 fl (7.4-10.4); PLATELET 413 x1000/uL (130-400); RED BLOOD CELL COUNT 3.39 mill/uL (4.7-6.1)
[2022-05-10 06:10] LABS: INR 1.2; PROTHROMBIN TIME 12.3 sec (9.6-11.0)
[2022-05-10] MEDS: MIDODRINE HCL 5MG TABLET PO SCH ×3 (08:17→17:18)
[2022-05-10] MEDS: PANTOPRAZOLE SODIUM 40 MG/VIAL IV SCH (08:17)
[2022-05-10] MEDS: POTASSIUM CHLORIDE 20MEQ/PACKET PO SCH (08:17)
[2022-05-10] MEDS: FUROSEMIDE 40MG/4ML VIAL IVP SCH (08:17)
[2022-05-10 08:34] LABS: BG BASE EXCESS 2.2 mmol/L (-2.0-2.0); BG CARBOXYHEMOGLOBIN 0.3 % (0.5-1.5); BG DEOXYHEMOGLOBIN 1.1 % (0.0-5.0); BG FRACTION INSPIRED OXYGEN 50; BG HCO3 ACT 25.7 mmol/L (22.0-26.0); BG METHEMOGLOBIN 0.5 % (0.0-1.5); BG OXYGEN SATURATION 98.9 % (92.0-98.5); BG OXYHEMOGLOBIN 98.1 % (94.0-97.0); BG PCO2 35.4 mmHg (35.0-45.0); BG PH 7.478 (7.350-7.450); BG PO2 168.5 mmHg (75.0-100.0); BG SAMPLE SITE RIGHT BRACHIAL; BG TOTAL HEMOGLOBIN 10.1 g/dL (12.0-18.0); BG VENT MODE VENT - AC
[2022-05-10 08:48] LABS: PLATELET ESTIMATE SLIGHTLY INCREASED
[2022-05-10] MEDS: MORPHINE SULFATE 2 MG/ML CPJ (NOT FOR IM USE) IV PRN (09:38)
[2022-05-10] MEDS ORDERED: MIDAZOLAM HCL 5 MG/5 ML VIAL ONE (13:50)
[2022-05-10] MEDS ORDERED: ROCURONIUM BROMIDE 10MG/ML VIAL 5ML IV ONE (13:50)
[2022-05-11] VITALS (48 sets, daily range): BP systolic 107–179; BP diastolic 60–106
[2022-05-11] MEDS: IPRATROPIUM/ALBUTEROL 0.5-3(2.5)MG/3ML NEB HHN SCH ×3 (02:22→14:58)
[2022-05-11 05:10] LABS: HEMATOCRIT. 27.5 % (42.0-52.0); MEAN CORPUSCULAR VOLUME 85.8 fL (80.0-94.0); MEAN PLATELET VOLUME 9.9 fl (7.4-10.4); PLATELET 457 x1000/uL (130-400); RED CELL DISTRIBUTION WIDTH 16.8 % (11.6-14.6)
[2022-05-11] MEDS: INSULIN LISPRO 100 UNITS/ML SUBCUT SCH ×3 (05:10→17:20)
[2022-05-11] MEDS: BLOOD SUGAR DIAGNOSTIC STRIP TEST SCH ×3 (05:10→17:20)
[2022-05-11] MEDS: METOCLOPRAMIDE HCL 10MG/2ML VIAL IV SCH ×3 (05:19→17:06)
[2022-05-11] MEDS: MORPHINE SULFATE 2 MG/ML CPJ (NOT FOR IM USE) IV PRN ×3 (05:20→21:27)
[2022-05-11] MEDS: DEXT 5%/0.9% NACL 1,000 ML IV SCH (05:21)
[2022-05-11 05:26] LABS: CHLORIDE 111 mEq/L (98-107)
[2022-05-11] MEDS ORDERED: MEROPENEM 1000MG in NORMAL SALINE 100ML IV SCH (06:00)
[2022-05-11 07:59] LABS: BG BASE EXCESS 3.1 mmol/L (-2.0-2.0); BG CARBOXYHEMOGLOBIN 0.3 % (0.5-1.5); BG DEOXYHEMOGLOBIN 1.3 % (0.0-5.0); BG HCO3 ACT 26.2 mmol/L (22.0-26.0); BG METHEMOGLOBIN 0.2 % (0.0-1.5); BG OXYGEN SATURATION 98.7 % (92.0-98.5); BG OXYHEMOGLOBIN 98.2 % (94.0-97.0); BG PCO2 33.6 mmHg (35.0-45.0); BG PH 7.509 (7.350-7.450); BG PO2 144.3 mmHg (75.0-100.0); BG SAMPLE SITE RIGHT BRACHIAL; BG TOTAL HEMOGLOBIN 9.1 g/dL (12.0-18.0); BG VENT MODE VENT - AC
[2022-05-11] MEDS: FUROSEMIDE 40MG/4ML VIAL IVP SCH (08:12)
[2022-05-11] MEDS: PANTOPRAZOLE SODIUM 40 MG/VIAL IV SCH (08:12)
[2022-05-11] MEDS: MIDODRINE HCL 5MG TABLET PO SCH ×3 (08:12→17:07)
[2022-05-11] MEDS: POTASSIUM CHLORIDE 20MEQ/PACKET PO SCH (08:12)
[2022-05-11 08:15] LABS: PHOSPHORUS 3.6 mg/dL (2.5-4.9)
[2022-05-11] MEDS ORDERED: KCL 20MEQ/100ML PREMIX 100 ML IV NR (09:00)
[2022-05-11 09:20] LABS: PLATELET ESTIMATE INCREASED
[2022-05-11] MEDS: MEROPENEM-0.9% SODIUM CHLORIDE 50 ML IV SCH ×2 (13:14→21:24)
[2022-05-11] MEDS: DAPTOMYCIN 300 MG in SODIUM CHLORIDE 0.9% 50 ML IV SCH (18:24)
[2022-05-12] VITALS (22 sets, daily range): BP systolic 98–155; BP diastolic 45–91
[2022-05-12] MEDS: METOCLOPRAMIDE HCL 10MG/2ML VIAL IV SCH ×4 (00:23→18:20)
[2022-05-12] MEDS: IPRATROPIUM/ALBUTEROL 0.5-3(2.5)MG/3ML NEB HHN SCH ×4 (01:45→21:14)
[2022-05-12] MEDS ORDERED: LORAZEPAM 2MG/ML CPJ IV PRN (01:45)
[2022-05-12] MEDS: INSULIN LISPRO 100 UNITS/ML SUBCUT SCH ×4 (05:31→17:39)
[2022-05-12] MEDS: BLOOD SUGAR DIAGNOSTIC STRIP TEST SCH ×4 (05:32→17:39)
[2022-05-12] MEDS: MEROPENEM-0.9% SODIUM CHLORIDE 50 ML IV SCH ×3 (05:48→22:30)
[2022-05-12 06:45] LABS: CHLORIDE 113 mEq/L (98-107)
[2022-05-12 06:55] LABS: CREATINE KINASE 17 IU/L (39-308)
[2022-05-12 08:29] LABS: BG CARBOXYHEMOGLOBIN 0.3 % (0.5-1.5); BG DEOXYHEMOGLOBIN 3.1 % (0.0-5.0); BG HCO3 ACT 22.2 mmol/L (22.0-26.0); BG METHEMOGLOBIN 0.1 % (0.0-1.5); BG OXYGEN SATURATION 96.9 % (92.0-98.5); BG OXYHEMOGLOBIN 96.5 % (94.0-97.0); BG PCO2 28.5 mmHg (35.0-45.0); BG PO2 89.4 mmHg (75.0-100.0); BG SAMPLE SITE RIGHT BRACHIAL; BG TOTAL HEMOGLOBIN 11.1 g/dL (12.0-18.0); BG VENT MODE VENT - AC
[2022-05-12] MEDS: PANTOPRAZOLE SODIUM 40 MG/VIAL IV SCH (09:36)
[2022-05-12] MEDS: FUROSEMIDE 40MG/4ML VIAL IVP SCH (09:36)
[2022-05-12] MEDS: POTASSIUM CHLORIDE 20MEQ/PACKET PO SCH (09:38)
[2022-05-12] MEDS: MIDODRINE HCL 5MG TABLET PO SCH ×3 (09:40→18:22)
[2022-05-12] MEDS ORDERED: POTASSIUM CHLORIDE 20MEQ/PACKET PO NR (10:45)
[2022-05-12] MEDS: DAPTOMYCIN 300 MG in SODIUM CHLORIDE 0.9% 50 ML IV SCH (18:20)
[2022-05-13] VITALS (17 sets, daily range): BP systolic 108–147; BP diastolic 58–85
[2022-05-13] MEDS: METOCLOPRAMIDE HCL 10MG/2ML VIAL IV SCH (00:23)
[2022-05-13] MEDS: IPRATROPIUM/ALBUTEROL 0.5-3(2.5)MG/3ML NEB HHN SCH ×4 (02:50→20:21)
[2022-05-13 04:40] LABS: BASOPHILS % 0.8 % (0.0-2.0); EOSINOPHILS % 1.4 % (0.0-5.0); HEMATOCRIT. 29.8 % (42.0-52.0); HEMOGLOBIN. 9.5 g/dL (14.0-18.0); LYMPHOCYTES % 7.7 % (20.0-50.0); MEAN CORPUSCULAR HEMOGLOBIN 27.7 pg (28.0-32.0); MEAN CORPUSCULAR VOLUME 87.4 fL (80.0-94.0); MEAN PLATELET VOLUME 9.3 fl (7.4-10.4); MONOCYTES % 5.5 % (2.0-8.0); NEUTROPHILS % 84.6 % (40.0-76.0); PLATELET 543 x1000/uL (130-400); RED BLOOD CELL COUNT 3.41 mill/uL (4.7-6.1); RED CELL DISTRIBUTION WIDTH 16.5 % (11.6-14.6)
[2022-05-13 04:51] LABS: CHLORIDE 112 mEq/L (98-107)
[2022-05-13 04:56] LABS: PHOSPHORUS 3.5 mg/dL (2.5-4.9)
[2022-05-13] MEDS: INSULIN LISPRO 100 UNITS/ML SUBCUT SCH ×4 (05:09→18:00)
[2022-05-13] MEDS: BLOOD SUGAR DIAGNOSTIC STRIP TEST SCH ×4 (05:09→18:49)
[2022-05-13] MEDS: MEROPENEM-0.9% SODIUM CHLORIDE 50 ML IV SCH ×3 (05:18→23:00)
[2022-05-13] MEDS ORDERED: IPRATROPIUM/ALBUTEROL 0.5-3(2.5)MG/3ML NEB HHN PRN (07:45)
[2022-05-13 08:24] LABS: BG BASE EXCESS 1.1 mmol/L (-2.0-2.0); BG CARBOXYHEMOGLOBIN 0.3 % (0.5-1.5); BG DEOXYHEMOGLOBIN 2.7 % (0.0-5.0); BG FRACTION INSPIRED OXYGEN 40; BG HCO3 ACT 24.3 mmol/L (22.0-26.0); BG METHEMOGLOBIN 0.5 % (0.0-1.5); BG OXYGEN SATURATION 97.3 % (92.0-98.5); BG OXYHEMOGLOBIN 96.5 % (94.0-97.0); BG PCO2 33.2 mmHg (35.0-45.0); BG PH 7.482 (7.350-7.450); BG PO2 95.1 mmHg (75.0-100.0); BG TOTAL HEMOGLOBIN 10.1 g/dL (12.0-18.0); BG VENT MODE VENT - AC
[2022-05-13] MEDS: FUROSEMIDE 40MG/4ML VIAL IVP SCH (09:05)
[2022-05-13] MEDS: PANTOPRAZOLE SODIUM 40 MG/VIAL IV SCH (09:05)
[2022-05-13] MEDS: MIDODRINE HCL 5MG TABLET PO SCH ×3 (09:06→17:00)
[2022-05-13] MEDS: POTASSIUM CHLORIDE 20MEQ/PACKET PO SCH (09:09)
[2022-05-14] VITALS (12 sets, daily range): BP systolic 113–145; BP diastolic 47–92
[2022-05-14] MEDS: BLOOD SUGAR DIAGNOSTIC STRIP TEST SCH ×5 (00:48→23:22)
[2022-05-14] MEDS: DAPTOMYCIN 300 MG in SODIUM CHLORIDE 0.9% 50 ML IV SCH ×2 (01:22→17:39)
[2022-05-14] MEDS: IPRATROPIUM/ALBUTEROL 0.5-3(2.5)MG/3ML NEB HHN SCH ×4 (01:44→20:40)
[2022-05-14] MEDS: INSULIN LISPRO 100 UNITS/ML SUBCUT SCH ×5 (05:13→23:22)
[2022-05-14] MEDS: MEROPENEM-0.9% SODIUM CHLORIDE 50 ML IV SCH ×3 (05:13→21:21)
[2022-05-14 07:11] LABS: HEMATOCRIT. 27.5 % (42.0-52.0); HEMOGLOBIN. 9.1 g/dL (14.0-18.0); MEAN CORPUSCULAR HEMOGLOBIN 28.6 pg (28.0-32.0); MEAN CORPUSCULAR VOLUME 86.1 fL (80.0-94.0); MEAN PLATELET VOLUME 9.8 fl (7.4-10.4); PLATELET 535 x1000/uL (130-400); RED BLOOD CELL COUNT 3.19 mill/uL (4.7-6.1)
[2022-05-14 07:51] LABS: BG BASE EXCESS 1.3 mmol/L (-2.0-2.0); BG CARBOXYHEMOGLOBIN 0.3 % (0.5-1.5); BG DEOXYHEMOGLOBIN 1.3 % (0.0-5.0); BG HCO3 ACT 25.3 mmol/L (22.0-26.0); BG METHEMOGLOBIN 0.3 % (0.0-1.5); BG OXYGEN SATURATION 98.7 % (92.0-98.5); BG OXYHEMOGLOBIN 98.1 % (94.0-97.0); BG PCO2 37.6 mmHg (35.0-45.0); BG PH 7.446 (7.350-7.450); BG PO2 181.9 mmHg (75.0-100.0); BG SAMPLE SITE RIGHT BRACHIAL; BG VENT MODE VENT - AC
[2022-05-14 08:35] LABS: CHLORIDE 111 mEq/L (98-107)
[2022-05-14] MEDS: PANTOPRAZOLE SODIUM 40 MG/VIAL IV SCH (08:55)
[2022-05-14] MEDS: FUROSEMIDE 40MG/4ML VIAL IVP SCH (08:55)
[2022-05-14] MEDS: MIDODRINE HCL 5MG TABLET PO SCH (08:56)
[2022-05-14] MEDS: POTASSIUM CHLORIDE 20MEQ/PACKET PO SCH (08:56)
[2022-05-14] MEDS: MORPHINE SULFATE 2 MG/ML CPJ (NOT FOR IM USE) IV PRN (11:14)
[2022-05-14] MEDS ORDERED: MIDODRINE HCL 5MG TABLET PO SCH (13:00)
[2022-05-14 21:02] LABS: PLATELET ESTIMATE INCREASED
[2022-05-15] VITALS (12 sets, daily range): BP systolic 117–148; BP diastolic 76–120
[2022-05-15] MEDS: IPRATROPIUM/ALBUTEROL 0.5-3(2.5)MG/3ML NEB HHN SCH ×4 (02:00→21:06)
[2022-05-15] MEDS: MEROPENEM-0.9% SODIUM CHLORIDE 50 ML IV SCH ×3 (05:24→22:00)
[2022-05-15] MEDS: INSULIN LISPRO 100 UNITS/ML SUBCUT SCH ×4 (05:47→23:17)
[2022-05-15] MEDS: BLOOD SUGAR DIAGNOSTIC STRIP TEST SCH ×4 (05:47→23:17)
[2022-05-15 07:00] LABS: BASOPHILS % 1.4 % (0.0-2.0); EOSINOPHILS % 3.3 % (0.0-5.0); HEMATOCRIT. 27.4 % (42.0-52.0); HEMOGLOBIN. 8.8 g/dL (14.0-18.0); LYMPHOCYTES % 9.3 % (20.0-50.0); MEAN CORPUSCULAR HEMOGLOBIN 27.6 pg (28.0-32.0); MEAN CORPUSCULAR VOLUME 85.6 fL (80.0-94.0); MEAN PLATELET VOLUME 9.3 fl (7.4-10.4); MONOCYTES % 5.6 % (2.0-8.0); NEUTROPHILS % 80.4 % (40.0-76.0); PLATELET 549 x1000/uL (130-400); RED CELL DISTRIBUTION WIDTH 16.9 % (11.6-14.6)
[2022-05-15 08:40] LABS: CHLORIDE 111 mEq/L (98-107)
[2022-05-15 09:24] LABS: BG BASE EXCESS 4.6 mmol/L (-2.0-2.0); BG CARBOXYHEMOGLOBIN 0.3 % (0.5-1.5); BG DEOXYHEMOGLOBIN 0.8 % (0.0-5.0); BG FRACTION INSPIRED OXYGEN 40; BG HCO3 ACT 29.1 mmol/L (22.0-26.0); BG METHEMOGLOBIN 0.4 % (0.0-1.5); BG OXYGEN SATURATION 99.2 % (92.0-98.5); BG OXYHEMOGLOBIN 98.5 % (94.0-97.0); BG PCO2 43.3 mmHg (35.0-45.0); BG PH 7.446 (7.350-7.450); BG PO2 189.6 mmHg (75.0-100.0); BG SAMPLE SITE RIGHT RADIAL; BG TOTAL HEMOGLOBIN 10.1 g/dL (12.0-18.0); BG TOTAL RESPIRATORY RATE 29 b/min; BG VENT MODE VENT - AC
[2022-05-15] MEDS: POTASSIUM CHLORIDE 20MEQ/PACKET PO SCH (09:56)
[2022-05-15] MEDS: FUROSEMIDE 40MG/4ML VIAL IVP SCH (09:56)
[2022-05-15] MEDS: PANTOPRAZOLE SODIUM 40 MG/VIAL IV SCH (09:56)
[2022-05-15] MEDS: NICOTINE 21MG PATCH TD SCH (12:40)
[2022-05-15] MEDS: DAPTOMYCIN 300 MG in SODIUM CHLORIDE 0.9% 50 ML IV SCH (18:00)
[2022-05-16] VITALS (12 sets, daily range): BP systolic 119–141; BP diastolic 80–101
[2022-05-16] MEDS: IPRATROPIUM/ALBUTEROL 0.5-3(2.5)MG/3ML NEB HHN SCH ×4 (02:28→20:45)
[2022-05-16] MEDS: INSULIN LISPRO 100 UNITS/ML SUBCUT SCH ×3 (05:35→18:00)
[2022-05-16] MEDS: MEROPENEM-0.9% SODIUM CHLORIDE 50 ML IV SCH ×3 (05:35→21:58)
[2022-05-16] MEDS: BLOOD SUGAR DIAGNOSTIC STRIP TEST SCH ×3 (05:35→18:00)
[2022-05-16 07:11] LABS: BASOPHILS % 0.8 % (0.0-2.0); EOSINOPHILS % 3.5 % (0.0-5.0); HEMATOCRIT. 29.5 % (42.0-52.0); HEMOGLOBIN. 9.6 g/dL (14.0-18.0); LYMPHOCYTES % 10.6 % (20.0-50.0); MEAN CORPUSCULAR HEMOGLOBIN 27.7 pg (28.0-32.0); MEAN CORPUSCULAR VOLUME 85.2 fL (80.0-94.0); MEAN PLATELET VOLUME 9.2 fl (7.4-10.4); MONOCYTES % 6.9 % (2.0-8.0); NEUTROPHILS % 78.2 % (40.0-76.0); PLATELET 579 x1000/uL (130-400); RED BLOOD CELL COUNT 3.46 mill/uL (4.7-6.1); RED CELL DISTRIBUTION WIDTH 16.9 % (11.6-14.6)
[2022-05-16 07:45] LABS: CHLORIDE 111 mEq/L (98-107)
[2022-05-16] MEDS ORDERED: LIDOCAINE HCL 1% 10 MG/ML 10ML VIAL ONE (09:34)
[2022-05-16] MEDS: POTASSIUM CHLORIDE 20MEQ/PACKET PO SCH (10:36)
[2022-05-16] MEDS: NICOTINE 21MG PATCH TD SCH (10:36)
[2022-05-16] MEDS: FUROSEMIDE 40MG/4ML VIAL IVP SCH (12:08)
[2022-05-16] MEDS: PANTOPRAZOLE SODIUM 40 MG/VIAL IV SCH (12:09)
[2022-05-16] MEDS: DAPTOMYCIN 300 MG in SODIUM CHLORIDE 0.9% 50 ML IV SCH (19:52)
[2022-05-17] VITALS (12 sets, daily range): BP systolic 102–157; BP diastolic 64–105
[2022-05-17] MEDS: INSULIN LISPRO 100 UNITS/ML SUBCUT SCH
[2022-05-17] MEDS: BLOOD SUGAR DIAGNOSTIC STRIP TEST SCH
[2022-05-17] MEDS: IPRATROPIUM/ALBUTEROL 0.5-3(2.5)MG/3ML NEB HHN SCH ×4 (02:21→20:53)
[2022-05-17 06:47] LABS: BASOPHILS % 0.8 % (0.0-2.0); EOSINOPHILS % 4.1 % (0.0-5.0); HEMATOCRIT. 30.5 % (42.0-52.0); HEMOGLOBIN. 9.8 g/dL (14.0-18.0); MEAN CORPUSCULAR HEMOGLOBIN 27.6 pg (28.0-32.0); MEAN CORPUSCULAR VOLUME 85.7 fL (80.0-94.0); MEAN PLATELET VOLUME 9.6 fl (7.4-10.4); MONOCYTES % 4.5 % (2.0-8.0); NEUTROPHILS % 81.6 % (40.0-76.0); PLATELET 519 x1000/uL (130-400); RED BLOOD CELL COUNT 3.56 mill/uL (4.7-6.1); RED CELL DISTRIBUTION WIDTH 17.2 % (11.6-14.6)
[2022-05-17 07:03] LABS: CHLORIDE 109 mEq/L (98-107)
[2022-05-17] MEDS: NICOTINE 21MG PATCH TD SCH (08:26)
[2022-05-17] MEDS: FUROSEMIDE 40MG/4ML VIAL IVP SCH (08:26)
[2022-05-17] MEDS: POTASSIUM CHLORIDE 20MEQ/PACKET PO SCH (08:26)
[2022-05-17] MEDS: PANTOPRAZOLE SODIUM 40 MG/VIAL IV SCH (08:26)
[2022-05-17] MEDS ORDERED: HALOPERIDOL LACTATE 5MG/ML VIAL IM NR (12:45)
[2022-05-17] MEDS: DAPTOMYCIN 300 MG in SODIUM CHLORIDE 0.9% 50 ML IV SCH (18:08)
[2022-05-17] MEDS: RISPERIDONE 1MG TABLET PO SCH (22:23)
[2022-05-18] VITALS (12 sets, daily range): BP systolic 91–137; BP diastolic 66–95
[2022-05-18] MEDS: IPRATROPIUM/ALBUTEROL 0.5-3(2.5)MG/3ML NEB HHN SCH ×3 (02:14→13:54)
[2022-05-18 07:18] LABS: BASOPHILS % 1.1 % (0.0-2.0); EOSINOPHILS % 6.2 % (0.0-5.0); HEMATOCRIT. 30.2 % (42.0-52.0); HEMOGLOBIN. 9.8 g/dL (14.0-18.0); LYMPHOCYTES % 12.4 % (20.0-50.0); MEAN CORPUSCULAR HEMOGLOBIN 27.6 pg (28.0-32.0); MEAN CORPUSCULAR VOLUME 84.7 fL (80.0-94.0); MEAN PLATELET VOLUME 9.4 fl (7.4-10.4); MONOCYTES % 5.8 % (2.0-8.0); NEUTROPHILS % 74.5 % (40.0-76.0); PLATELET 434 x1000/uL (130-400); RED BLOOD CELL COUNT 3.57 mill/uL (4.7-6.1); RED CELL DISTRIBUTION WIDTH 17.1 % (11.6-14.6)
[2022-05-18 09:11] LABS: CHLORIDE 105 mEq/L (98-107)
[2022-05-18] MEDS: FUROSEMIDE 40MG/4ML VIAL IVP SCH (09:43)
[2022-05-18] MEDS: POTASSIUM CHLORIDE 20MEQ/PACKET PO SCH (09:43)
[2022-05-18] MEDS: RISPERIDONE 1MG TABLET PO SCH ×2 (09:43→22:31)
[2022-05-18] MEDS: NICOTINE 21MG PATCH TD SCH (09:44)
[2022-05-18] MEDS: DAPTOMYCIN 300 MG in SODIUM CHLORIDE 0.9% 50 ML IV SCH (18:18)
[2022-05-19] VITALS (12 sets, daily range): BP systolic 112–141; BP diastolic 60–90
[2022-05-19 06:53] LABS: HEMATOCRIT. 28.9 % (42.0-52.0); HEMOGLOBIN. 9.4 g/dL (14.0-18.0); MEAN CORPUSCULAR HEMOGLOBIN 27.4 pg (28.0-32.0); MEAN CORPUSCULAR VOLUME 83.8 fL (80.0-94.0); PLATELET 378 x1000/uL (130-400); RED BLOOD CELL COUNT 3.45 mill/uL (4.7-6.1); RED CELL DISTRIBUTION WIDTH 16.8 % (11.6-14.6)
[2022-05-19 07:07] LABS: CHLORIDE 107 mEq/L (98-107)
[2022-05-19] MEDS: POTASSIUM CHLORIDE 20MEQ/PACKET PO SCH (08:26)
[2022-05-19] MEDS: RISPERIDONE 1MG TABLET PO SCH ×2 (08:26→21:31)
[2022-05-19] MEDS: NICOTINE 21MG PATCH TD SCH (08:26)
[2022-05-19] MEDS: FUROSEMIDE 40MG/4ML VIAL IVP SCH (08:26)
[2022-05-19 10:46] LABS: PLATELET ESTIMATE NORMAL
[2022-05-19] MEDS: DAPTOMYCIN 300 MG in SODIUM CHLORIDE 0.9% 50 ML IV SCH (18:07)
[2022-05-20] VITALS (11 sets, daily range): BP systolic 99–129; BP diastolic 73–89
[2022-05-20 06:00] LABS: BASOPHILS % 0.9 % (0.0-2.0); HEMATOCRIT. 29.5 % (42.0-52.0); HEMOGLOBIN. 9.5 g/dL (14.0-18.0); MEAN CORPUSCULAR HEMOGLOBIN 27.2 pg (28.0-32.0); MEAN CORPUSCULAR VOLUME 84.5 fL (80.0-94.0); MEAN PLATELET VOLUME 9.8 fl (7.4-10.4); MONOCYTES % 6.4 % (2.0-8.0); NEUTROPHILS % 78.7 % (40.0-76.0); PLATELET 366 x1000/uL (130-400); RED CELL DISTRIBUTION WIDTH 17.1 % (11.6-14.6)
[2022-05-20 07:30] LABS: PHOSPHORUS 5.5 mg/dL (2.5-4.9)
[2022-05-20] MEDS: RISPERIDONE 1MG TABLET PO SCH ×2 (08:04→21:32)
[2022-05-20] MEDS: FUROSEMIDE 40MG/4ML VIAL IVP SCH (08:04)
[2022-05-20] MEDS: NICOTINE 21MG PATCH TD SCH (08:04)
[2022-05-20] MEDS: ACETAMINOPHEN 650MG/20.3ML UDC PO PRN (08:04)
[2022-05-20] MEDS: POTASSIUM CHLORIDE 20MEQ/PACKET PO SCH (08:04)
[2022-05-20] MEDS ORDERED: LORAZEPAM 0.5MG TABLET PO PRN (09:00)
[2022-05-20 09:03] LABS: CREATINE KINASE 26 IU/L (39-308)
[2022-05-20 09:32] LABS: BG BASE EXCESS 2.8 mmol/L (-2.0-2.0); BG CARBOXYHEMOGLOBIN 0.3 % (0.5-1.5); BG DEOXYHEMOGLOBIN 3.1 % (0.0-5.0); BG FRACTION INSPIRED OXYGEN 30; BG HCO3 ACT 26.3 mmol/L (22.0-26.0); BG METHEMOGLOBIN 0.3 % (0.0-1.5); BG OXYGEN SATURATION 96.9 % (92.0-98.5); BG OXYHEMOGLOBIN 96.3 % (94.0-97.0); BG PCO2 36.2 mmHg (35.0-45.0); BG PH 7.479 (7.350-7.450); BG PO2 92.2 mmHg (75.0-100.0); BG SAMPLE SITE RIGHT RADIAL; BG TOTAL HEMOGLOBIN 10.4 g/dL (12.0-18.0); BG TOTAL RESPIRATORY RATE 29 b/min; BG VENT MODE VENT - AC
[2022-05-20] MEDS ORDERED: HYDROCODONE/ACETAMINOPHEN 5/325MG TABLET PO PRN (10:00)
[2022-05-20] MEDS ORDERED: MORPHINE SULFATE 2 MG/ML CPJ (NOT FOR IM USE) IV PRN (10:00)
[2022-05-20] MEDS ORDERED: NALOXONE HCL 0.4MG/ML VIAL IV PRN (10:15)
[2022-05-20 19:27] LABS: BG BASE EXCESS 2.6 mmol/L (-2.0-2.0); BG CARBOXYHEMOGLOBIN 0.3 % (0.5-1.5); BG FRACTION INSPIRED OXYGEN 30; BG HCO3 ACT 26.2 mmol/L (22.0-26.0); BG METHEMOGLOBIN 0.4 % (0.0-1.5); BG OXYHEMOGLOBIN 97.3 % (94.0-97.0); BG PCO2 36.8 mmHg (35.0-45.0); BG PH 7.471 (7.350-7.450); BG PO2 114.2 mmHg (75.0-100.0); BG SAMPLE SITE LEFT RADIAL; BG VENT MODE VENT - SIMV
[2022-05-20] MEDS ORDERED: ACETYLCYSTEINE 200MG/ML 20% VIAL 4ML INH SCH (22:00)
[2022-05-21] VITALS (12 sets, daily range): BP systolic 108–125; BP diastolic 72–81
[2022-05-21 06:52] LABS: BASOPHILS % 0.9 % (0.0-2.0); EOSINOPHILS % 6.5 % (0.0-5.0); HEMATOCRIT. 28.1 % (42.0-52.0); HEMOGLOBIN. 8.9 g/dL (14.0-18.0); LYMPHOCYTES % 9.8 % (20.0-50.0); MEAN CORPUSCULAR HEMOGLOBIN 26.8 pg (28.0-32.0); MEAN CORPUSCULAR VOLUME 85.1 fL (80.0-94.0); MEAN PLATELET VOLUME 10.5 fl (7.4-10.4); MONOCYTES % 5.5 % (2.0-8.0); NEUTROPHILS % 77.3 % (40.0-76.0); PLATELET 369 x1000/uL (130-400); RED CELL DISTRIBUTION WIDTH 17.3 % (11.6-14.6)
[2022-05-21 07:11] LABS: CHLORIDE 110 mEq/L (98-107)
[2022-05-21] MEDS: NICOTINE 21MG PATCH TD SCH (10:11)
[2022-05-21] MEDS: RISPERIDONE 1MG TABLET PO SCH ×2 (10:11→21:30)
[2022-05-21] MEDS ORDERED: ACETYLCYSTEINE 200MG/ML 20% VIAL 4ML INH SCH (14:00)
[2022-05-22] VITALS (8 sets, daily range): BP systolic 106–126; BP diastolic 45–83
[2022-05-22 06:51] LABS: BASOPHILS % 3.3 % (0.0-2.0); EOSINOPHILS % 7.5 % (0.0-5.0); HEMATOCRIT. 26.7 % (42.0-52.0); HEMOGLOBIN. 8.6 g/dL (14.0-18.0); MEAN CORPUSCULAR HEMOGLOBIN 27.1 pg (28.0-32.0); MEAN CORPUSCULAR VOLUME 84.3 fL (80.0-94.0); MEAN PLATELET VOLUME 10.9 fl (7.4-10.4); MONOCYTES % 5.5 % (2.0-8.0); NEUTROPHILS % 68.7 % (40.0-76.0); PLATELET 390 x1000/uL (130-400); RED BLOOD CELL COUNT 3.16 mill/uL (4.7-6.1); RED CELL DISTRIBUTION WIDTH 17.4 % (11.6-14.6)
[2022-05-22 07:17] LABS: CHLORIDE 113 mEq/L (98-107)
[2022-05-22] MEDS: RISPERIDONE 1MG TABLET PO SCH (08:24)
[2022-05-22] MEDS: NICOTINE 21MG PATCH TD SCH (08:24)
[2022-05-22 10:17] LABS: BG CARBOXYHEMOGLOBIN 0.3 % (0.5-1.5); BG DEOXYHEMOGLOBIN 1.5 % (0.0-5.0); BG FRACTION INSPIRED OXYGEN 30; BG HCO3 ACT 30.3 mmol/L (22.0-26.0); BG METHEMOGLOBIN 0.7 % (0.0-1.5); BG OXYGEN SATURATION 98.5 % (92.0-98.5); BG OXYHEMOGLOBIN 97.5 % (94.0-97.0); BG PCO2 43.3 mmHg (35.0-45.0); BG PH 7.463 (7.350-7.450); BG PO2 122.6 mmHg (75.0-100.0); BG SAMPLE SITE RIGHT BRACHIAL; BG TOTAL HEMOGLOBIN 8.3 g/dL (12.0-18.0); BG VENT MODE VENT - AC
== END 2022-05-22 22:43 | disposition short-term general hospital (02) | DRG 4 ==
LOC: ER 16:22 → MICUSO 19:04 → 7WST 04-08 05:00 → 6EST 04-11 09:41 → 7WST 04-15 01:03 → MICUNO 04-16 13:00 → MICUSO 04-18 15:39 → 5EST 05-13 14:01
PROVIDERS: ADMIT Internal Medicine; ATTEND Internal Medicine
PROC: 4A00X4Z Measurement of Central Nervous Electrical Activity, External Approach (ICD-10-PCS; 2022-04-10)
PROC: 5A1955Z Respiratory Ventilation, Greater than 96 Consecutive Hours (ICD-10-PCS; principal; 2022-04-16)
PROC: 0BH17EZ Insertion of Endotracheal Airway into Trachea, Via Natural or Artificial Opening (ICD-10-PCS; 2022-04-16)
PROC: 05H333Z Insertion of Infusion Device into Right Innominate Vein, Percutaneous Approach (ICD-10-PCS; 2022-04-19)
PROC: B54MZZA Ultrasonography of Right Upper Extremity Veins, Guidance (ICD-10-PCS; 2022-04-19)
PROC: 5A09357 Assistance with Respiratory Ventilation, Less than 24 Consecutive Hours, Continuous Positive Airway Pressure (ICD-10-PCS; 2022-04-24)
PROC: 5A09457 Assistance with Respiratory Ventilation, 24-96 Consecutive Hours, Continuous Positive Airway Pressure (ICD-10-PCS; 2022-04-25)
PROC: 5A0935A Assistance with Respiratory Ventilation, Less than 24 Consecutive Hours, High Flow/Velocity Cannula (ICD-10-PCS; 2022-04-25)
PROC: 0BH17EZ Insertion of Endotracheal Airway into Trachea, Via Natural or Artificial Opening (ICD-10-PCS; 2022-04-27)
PROC: 5A1955Z Respiratory Ventilation, Greater than 96 Consecutive Hours (ICD-10-PCS; 2022-04-27)
PROC: 30233N1 Transfusion of Nonautologous Red Blood Cells into Peripheral Vein, Percutaneous Approach (ICD-10-PCS; 2022-04-28)
PROC: 5A0945A Assistance with Respiratory Ventilation, 24-96 Consecutive Hours, High Flow/Velocity Cannula (ICD-10-PCS; 2022-05-03)
PROC: 0B110F4 Bypass Trachea to Cutaneous with Tracheostomy Device, Open Approach (ICD-10-PCS; 2022-05-07)
PROC: 0GBJ0ZZ Excision of Thyroid Gland Isthmus, Open Approach (ICD-10-PCS; 2022-05-07)
PROC: 5A1955Z Respiratory Ventilation, Greater than 96 Consecutive Hours (ICD-10-PCS; 2022-05-07)
PROC: 0DB78ZX Excision of Stomach, Pylorus, Via Natural or Artificial Opening Endoscopic, Diagnostic (ICD-10-PCS; 2022-05-10)
PROC: 0DH63UZ Insertion of Feeding Device into Stomach, Percutaneous Approach (ICD-10-PCS; 2022-05-10)
PROC: 02HV33Z Insertion of Infusion Device into Superior Vena Cava, Percutaneous Approach (ICD-10-PCS; 2022-05-16)
PROC: B548ZZA Ultrasonography of Superior Vena Cava, Guidance (ICD-10-PCS; 2022-05-16)
DX: A41.9 Sepsis, unspecified organism (principal); R65.21 Severe sepsis with septic shock; N17.0 Acute kidney failure with tubular necrosis; J69.0 Pneumonitis due to inhalation of food and vomit; G92.8 Other toxic encephalopathy; R64 Cachexia; E43 Unspecified severe protein-calorie malnutrition; E87.20 Acidosis, unspecified; D69.6 Thrombocytopenia, unspecified; J96.01 Acute respiratory failure with hypoxia; E87.0 Hyperosmolality and hypernatremia; N39.0 Urinary tract infection, site not specified; Z68.1 Body mass index [BMI] 19.9 or less, adult; E51.2 Wernicke's encephalopathy; R13.12 Dysphagia, oropharyngeal phase; F29 Unspecified psychosis not due to a substance or known physiological condition; F10.229 Alcohol dependence with intoxication, unspecified; E87.6 Hypokalemia; D53.9 Nutritional anemia, unspecified; J44.9 Chronic obstructive pulmonary disease, unspecified; K76.0 Fatty (change of) liver, not elsewhere classified; B19.20 Unspecified viral hepatitis C without hepatic coma; K80.20 Calculus of gallbladder without cholecystitis without obstruction; Z20.822 Contact with and (suspected) exposure to COVID-19; I12.9 Hypertensive chronic kidney disease with stage 1 through stage 4 chronic kidney disease, or unspecified chronic kidney disease; N18.9 Chronic kidney disease, unspecified; E11.22 Type 2 diabetes mellitus with diabetic chronic kidney disease; R27.0 Ataxia, unspecified; T50.2X5A Adverse effect of carbonic-anhydrase inhibitors, benzothiadiazides and other diuretics, initial encounter; K29.70 Gastritis, unspecified, without bleeding; S90.812A Abrasion, left foot, initial encounter; S90.811A Abrasion, right foot, initial encounter; E11.65 Type 2 diabetes mellitus with hyperglycemia; H40.9 Unspecified glaucoma; Z82.49 Family history of ischemic heart disease and other diseases of the circulatory system; Z86.73 Personal history of transient ischemic attack (TIA), and cerebral infarction without residual deficits; Z79.4 Long term (current) use of insulin; Z78.1 Physical restraint status; Z79.899 Other long term (current) drug therapy; Y90.6 Blood alcohol level of 120-199 mg/100 ml; X58.XXXA Exposure to other specified factors, initial encounter; Y93.89 Activity, other specified; Y92.89 Other specified places as the place of occurrence of the external cause; Y99.8 Other external cause status
CPT/HCPCS: 31500; 36415; 36573; 36600; 70551; 71045; 74018; 76604; 76700; 80048; 80053; 80202; 80307; 80320; 80329; 81003; 82140; 82375; 82550; 82570; 82607; 82746; 82805; 82962; 83036; 83605; 83735; 83880; 84100; 84145; 84300; 84439; 84443; 84478; 84481; 84484; 85014; 85018; 85025; 85049; 85384; 86359; 86360; 86592; 86803; 86850; 86900; 86920; 87070; 87077; 87186; 87340; 87389; 87426; 88305; 93005; 93306; 93308; 93970; 93971; 94002; 94003; 94640; 94660; 94667; 97162; 97164; 97166; 99285; A6261; C1725; C1893; C9113; J0692; J0696; J0878; J1120; J1630; J1815; J1940; J2060; J2185; J2250; J2270; J2370; J2704; J2765; J2920; J3010; J3370; J3411; J3475; J3480; J3490; J7042; J7050; J7060; J7070; J7608; P9016; P9047; G0480